=== PATIENT | male | born 1960 | race Caucasian/White ===

== ENCOUNTER 2022-11-10 14:46 | Outpatient (REF) | payer MEDICARE, SELFPAY ==
--- NOTE | ~2022-11-10 | US_ITS ---
EXAMINATION: NONINVASIVE ASSESSMENT OF THE ARTERIES OF BOTH LOWER EXTREMITIES WITH PVR EXAM AND BILATERAL LOWER EXTREMITY DUPLEX Iveth Ferreira MD CLINICAL INFORMATION: Peripheral vascular disease TECHNIQUE: Ankle pulse volume recordings, ankle pressure measurements and ankle brachial indices were obtained of the lower extremity arterial system bilaterally in addition to duplex Doppler techniques with wave form analysis and measurement of velocities in the common femoral, profunda femoral, superficial femoral, popliteal and tibial arteries. The study was performed only at rest. COMPARISON: None FINDINGS: a) AT REST: RIGHT LE. The right ankle-brachial index is: 1.01 * >0.97-1.25 = normal - no significant arterial disease * 0.75-0.96 = mild peripheral arterial disease * 0.5-0.74 = moderate peripheral arterial disease * <0.50 = severe peripheral arterial disease 2. Right ankle pressure: normal. 3. Right ankle PVR waveform: normal. 4. Right direct duplex Doppler findings: Common femoral artery: 107 cm/s, Multiphasic Profunda femoris artery: 104 cm/s, Multiphasic Superficial femoral artery (proximal): 135 cm/s, Multiphasic Superficial femoral artery (mid): 110 cm/s, Multiphasic Superficial femoral artery (distal): 69 cm/s, Multiphasic Proximal Popliteal artery: 82 cm/s, Multiphasic Mid posterior tibial artery: 98 cm/s, Multiphasic LEFT LE. The left ankle-brachial index is: 1.06 * >0.97-1.25 = normal - no significant arterial disease * 0.75-0.96 = mild peripheral arterial disease * 0.5-0.74 = moderate peripheral arterial disease * <0.50 = severe peripheral arterial disease 2. Left ankle pressure: normal. 3. Left ankle PVR waveform: normal. 4. Left direct duplex Doppler findings: Common femoral artery: 147 cm/s, Multiphasic Profunda femoris artery: 117 cm/s, Multiphasic Superficial femoral artery (proximal): 166 cm/s, Multiphasic Superficial femoral artery (mid): 122 cm/s, Multiphasic Superficial femoral artery (distal): 58 cm/s, Multiphasic Proximal Popliteal artery: 55 cm/s, Multiphasic Mid posterior tibial artery: 87 cm/s, Multiphasic US/US SOCORRO complete IMPRESSION: There is no evidence of any hemodynamically significant lower extremity arterial disease by pressure, waveform or duplex Doppler criteria at rest.
--- NOTE | ~2022-11-10 | US_ITS ---
EXAMINATION: NONINVASIVE ASSESSMENT OF THE ARTERIES OF BOTH LOWER EXTREMITIES WITH PVR EXAM AND BILATERAL LOWER EXTREMITY DUPLEX Iveth Ferreira MD CLINICAL INFORMATION: Peripheral vascular disease TECHNIQUE: Ankle pulse volume recordings, ankle pressure measurements and ankle brachial indices were obtained of the lower extremity arterial system bilaterally in addition to duplex Doppler techniques with wave form analysis and measurement of velocities in the common femoral, profunda femoral, superficial femoral, popliteal and tibial arteries. The study was performed only at rest. COMPARISON: None FINDINGS: a) AT REST: RIGHT LE. The right ankle-brachial index is: 1.01 * >0.97-1.25 = normal - no significant arterial disease * 0.75-0.96 = mild peripheral arterial disease * 0.5-0.74 = moderate peripheral arterial disease * <0.50 = severe peripheral arterial disease 2. Right ankle pressure: normal. 3. Right ankle PVR waveform: normal. 4. Right direct duplex Doppler findings: Common femoral artery: 107 cm/s, Multiphasic Profunda femoris artery: 104 cm/s, Multiphasic Superficial femoral artery (proximal): 135 cm/s, Multiphasic Superficial femoral artery (mid): 110 cm/s, Multiphasic Superficial femoral artery (distal): 69 cm/s, Multiphasic Proximal Popliteal artery: 82 cm/s, Multiphasic Mid posterior tibial artery: 98 cm/s, Multiphasic LEFT LE. The left ankle-brachial index is: 1.06 * >0.97-1.25 = normal - no significant arterial disease * 0.75-0.96 = mild peripheral arterial disease * 0.5-0.74 = moderate peripheral arterial disease * <0.50 = severe peripheral arterial disease 2. Left ankle pressure: normal. 3. Left ankle PVR waveform: normal. 4. Left direct duplex Doppler findings: Common femoral artery: 147 cm/s, Multiphasic Profunda femoris artery: 117 cm/s, Multiphasic Superficial femoral artery (proximal): 166 cm/s, Multiphasic Superficial femoral artery (mid): 122 cm/s, Multiphasic Superficial femoral artery (distal): 58 cm/s, Multiphasic Proximal Popliteal artery: 55 cm/s, Multiphasic Mid posterior tibial artery: 87 cm/s, Multiphasic US/US arterial duplex LE BI IMPRESSION: There is no evidence of any hemodynamically significant lower extremity arterial disease by pressure, waveform or duplex Doppler criteria at rest.
== END 2022-11-10 14:47 | disposition home or self-care (01) ==
LOC: HO.US 14:46
PROVIDERS: PCP Family Medicine; Visit Provider Family Medicine
DX: I73.9 Peripheral vascular disease, unspecified (principal)
CPT/HCPCS: 93923; 93925

== ENCOUNTER 2022-11-24 08:31 | Outpatient (REF) | payer MEDICARE, SELFPAY ==
--- NOTE | ~2022-11-24 | US_ITS ---
EXAMINATION: US RETROPERITONEAL LIMITED (RENAL ONLY) CLINICAL INFORMATION: Hypertension. COMPARISON: None available. TECHNIQUE: Doppler, color and grayscale evaluation of the kidneys and renal arteries including waveform spectral analysis of the renal arteries FINDINGS: RIGHT KIDNEY: 9.6 x 5.9 x 5.2 cm (SAG x AP x TRV). The kidney is normal in size, contour, and echogenicity. Renal cortical thickness is normal. No calculi or focal parenchymal lesions. No hydronephrosis. LEFT KIDNEY: 10.6 x 4.7 x 5 cm (SAG x AP x TRV). The kidney is normal in size, contour, and echogenicity. Renal cortical thickness is normal. No calculi or focal parenchymal lesions. No hydronephrosis. Right renal artery peak systolic velocity measures 61 cm/s. Mid aortic peak systolic velocity is 61 cm/s. There is aneurysm and graft in the distal abdominal aorta. Dedicated aortic ultrasound not performed. The right renal artery is patent. Right renal artery peak systolic velocities measure 34, 51 and 47 cm/s proximally, in the midportion and distally right renal artery peak systolic velocity is 0.8 cm/s. Resistive indices of the segmental renal arteries in the right kidney are normal measuring 0.6, 0.7. The left renal artery is patent. There is increased peak systolic velocity and spectral broadening of the left proximal renal artery measuring 245 cm/s. Peak systolic velocities in the left mid and distal renal arteries are normal measuring 141 and 35 cm/s. Left renal artery to aorta ratio is elevated measuring 4 suggestive of greater than 60% left renal artery stenosis. Resistive indices of the segmental renal arteries in the left kidney are normal measuring 0.6-0.7. The left renal vein is patent. US/US renal doppler IMPRESSION: Increased peak systolic velocity in the left proximal renal artery, spectral broadening and increased left renal artery to aorta ratio suggestive of greater than 60% left renal artery stenosis. No evidence of right renal artery stenosis.
== END 2022-11-24 08:32 | disposition home or self-care (01) ==
LOC: HO.US 08:31
PROVIDERS: PCP Family Medicine; Visit Provider Internal Medicine Nephrology
DX: I10 Essential (primary) hypertension (principal); N17.9 Acute kidney failure, unspecified
CPT/HCPCS: 76775; 93975

== ENCOUNTER 2023-04-15 08:45 | Outpatient (REF) | payer MEDICARE, SELFPAY ==
[2023-04-15 14:41] LABS: Anion Gap 16 (12-20); Blood Urea Nitrogen 15 mg/dL (9-16); Calcium 9.7 mg/dL (8.4-10.2); Carbon Dioxide 28 mmol/L (22-29); Chloride 101 mmol/L (96-108); Estimated Glomerular Filt Rate > 60; Glucose Random 120 mg/dL (60-115); Magnesium 2.3 mg/dL (1.6-2.6); Potassium 3.6 mmol/L (3.3-5.1); Sodium 141 mmol/L (135-145)
== END 2023-04-15 08:46 | disposition home or self-care (01) ==
LOC: HO.CHCLDS 08:45
PROVIDERS: Visit Provider Family Medicine
DX: I10 Essential (primary) hypertension (principal)
CPT/HCPCS: 36415; 80048; 83735

== ENCOUNTER 2024-01-18 11:31 | Outpatient (REF) | payer MEDICARE, SELFPAY ==
[2024-01-18 14:28] LABS: MANUAL DIFF FLAG NO
[2024-01-18 14:38] LABS: Basophils Absolute Auto 0.1 X10*3/uL (0.0-0.2); Basophils Percent Auto 0.6 % (0-2); Eosinophils Absolute Auto 0.3 X10*3/uL (0.0-0.4); Eosinophils Percent Auto 3.1 % (0-4); Hematocrit 42.3 % (42.0-52.0); Hemoglobin 14.6 g/dl (14.0-18.0); Imm Gran Abs Auto 0.04 X10*3/uL (0.00-0.03); Imm Gran Pct Auto 0.4 % (0.0-0.4); Lymphocytes Absolute Auto 2.2 X10*3/uL (1.2-4.9); Lymphocytes Percent Auto 21.8 % (20-40); Mean Corpuscular HGB Conc 34.5 g/dl (31.0-36.0); Mean Corpuscular Hemoglobin 32.1 pg (27.0-33.0); Mean Platelet Volume 9.3 fL (9.4-12.4); Monocytes Absolute Auto 0.8 X10*3/uL (0.1-1.2); Monocytes Percent Auto 8.2 % (2-11); Neutrophils Absolute Auto 6.6 x10*3/uL (2.0-8.3); Neutrophils Percent Auto 65.9 % (45-73); Platelet Count 268 X10*3/uL (160-400); Red Blood Count 4.55 X10*6/uL (4.60-5.80); Red Cell Distribution Width 14.6 % (11.0-16.0)
[2024-01-18 15:09] LABS: Alanine Aminotransferase 15 U/L (0-40); Albumin Level 4.5 g/dL (3.5-5.0); Alkaline Phosphatase 80 U/L (39-117); Anion Gap 14 (12-20); Aspartate Amino Transferase 19 U/L (5-37); Bilirubin Total 0.4 mg/dL (0.0-1.0); Blood Urea Nitrogen 11 mg/dL (9-16); Carbon Dioxide 27 mmol/L (22-29); Chloride 105 mmol/L (96-108); Cholesterol 173 mg/dL (<200); Estimated Glomerular Filt Rate 54; Glucose Random 96 mg/dL (60-115); HDL Cholesterol 44 mg/dL (>40); LDL Cholesterol Calculated 88 mg/dL (<100); Potassium 4.7 mmol/L (3.3-5.1); Sodium 141 mmol/L (135-145); Total Protein 7.6 g/dL (6.5-8.0); Triglycerides 207 mg/dL (<150)
[2024-01-18 15:14] LABS: TSH reflex Free T4 1.26 uIU/mL (0.32-4.0)
== END 2024-01-18 11:32 | disposition home or self-care (01) ==
LOC: HO.CHCLDS 11:31
PROVIDERS: Referring Provider Internal Medicine Nephrology; Visit Provider Family Medicine
DX: I10 Essential (primary) hypertension (principal)
CPT/HCPCS: 36415; 80053; 80061; 84443; 85025

== ENCOUNTER 2024-07-21 09:43 | Outpatient (REF) | payer MEDICARE, SELFPAY ==
[2024-07-21 14:44] LABS: Anion Gap 12 (12-20); Blood Urea Nitrogen 17 mg/dL (9-16); Calcium 9.6 mg/dL (8.4-10.2); Carbon Dioxide 27 mmol/L (22-29); Chloride 107 mmol/L (96-108); Estimated Glomerular Filt Rate 53; Glucose Random 98 mg/dL (60-115); Potassium 4.3 mmol/L (3.3-5.1); Sodium 142 mmol/L (135-145)
== END 2024-07-21 09:44 | disposition home or self-care (01) ==
LOC: HO.CHCLDS 09:43
PROVIDERS: PCP Family Medicine; Referring Provider Internal Medicine Nephrology; Visit Provider Internal Medicine Nephrology
DX: N18.31 Chronic kidney disease, stage 3a (principal); I12.9 Hypertensive chronic kidney disease with stage 1 through stage 4 chronic kidney disease, or unspecified chronic kidney disease
CPT/HCPCS: 36415; 80048

== ENCOUNTER 2025-03-16 10:31 | Outpatient (REF) | payer MEDICARE, SELFPAY ==
--- OUTSIDE RECORDS SUMMARY | 2025-03-15 16:00 | XMS_ITS | Encounter Summary ---
Author Organization [employer] Address [address] [place] [address] Care Team Providers Care Blister Packaging Machine Operator Name Role Phone Hanh Vidal MD Primary Care Provider [phone] Reason for Referral * Consultation (Routine) - Pending Review Specialty Diagnoses / Procedures Referred By Lexy t Referred To Contact Audiology Diagnoses Hard of hearing Hanh Vidal MD [address] [place] [address] Phone: tel: fax: Referral ID Status Reason Start Date Expiration Date Visits Requested Visits Authorized [id number] Pending Review Specialty Services Required 5 03/15/2026 1 1 * Consultation (Routine) - Pending Review Specialty Diagnoses / Procedures Referred By Lexy vieira Referred To Contact Gastroenterology Diagnoses Colon cancer screening Hanh Vidal MD [address] [place] [id number] Phone: tel: fax: Referral ID Status Reason Start Date Expiration Date Visits Requested Visits Authorized [id number] Pending Review Specialty Services Required 5 03/15/2026 1 1 * Imaging (Routine) - Pending Review Specialty Diagnoses / Procedures Referred By Lexy t Referred To Contact Cardiology Diagnoses Aneurysm of ascending aorta without rupture (CMS/HCC) Procedures Transthoracic echo (TTE) complete Hanh Vidal MD [address] [place] [id number] Phone: tel: fax: [address] Phone: tel: fax: Referral ID Status Reason Start Date Expiration Date Visits Requested Visits Authorized [id number] Pending Review Perform Procedure 03/15/2026 1 1 * Imaging (Routine) - Pending Review Specialty Diagnoses / Procedures Referred By Contjoseluis t Referred To Contact Radiology Diagnoses Infrarenal abdominal aortic aneurysm (AAA) without rupture (CMS/HCC) Procedures CT Abdomen Pelvis w/ and w/o Contrast Hanh Vidal MD [address] [place] [address] Phone: tel: fax: [address] Phone: tel: fax: Referral ID Status Reason Start Date Expiration Date V isits Requested Visits Authorized [id number] Pending Review 03/15/2025 03/15/2026 1 1 Reason for Visit * Reason Comments Follow-up Encounter Details Date Type Department Care Team (Late st Contact Info) Description 03/15/2025 4:00 PM EST Office Visit [facility] [address] [place] [address] Hanh Vidal MD [address] [place] [address] Infrarenal abdominal aortic aneurysm (AAA) without rupture (CMS/HCC) (Primary Dx); Resistant hypertension; Aneurysm of ascending aorta without rupture (CMS/HCC); Gout, unspecified cause, unspecified chronicity, unspecified site; Encounter for immunization; Encounter for vaccination; Colon cancer screening; Hard of hearing; Prostate cancer screening Social History Tobacco Use Types Packs/Day Years Used Date Smoking Tobacco: Every Day Cigarettes Passive Smoke Exposure: Never Smokeless Tobacco: Never Alcohol Use Standard Drinks/Week Comments Never 0 (1 standard drink = 0.6 oz pur e alcohol) Depression Answer Date Recorded Patient Health Questionnaire-9 Score 7 03/16/2025 Patient Health Questionnaire-9 Score 7 03/16/2025 Last PHQ-9: Questionnaire Data Not on file 1 05/16/2024 Housing Stability Answer Date Recorded What is your housing situation today? I have celi sanders 02/10/[address] you li ve. Do you have problems with any of the following? None of the above 02/10/2024 Food Insecurity Answer Date Recorded Within the past 12 months, y ou worried that your food would run out before you got money to buy more: Never True 02/10/2024 Within the past 12 months,th e food you bought just didn't last and you didn't have enough money to get more: Never True 01/2024 Transportation Answer Date Recorded In the past 12 months, has l ack of transportation kept you from medical appts, meetings, work or from getting things needed for daily living? No 02/10/2024 Utilities Answer Date Recorded In the past 12 months, has t he electric, gas, oil or water company threatened to shut off services in your home? No 02/10/2024 Depression Answer Date Recorded Patient Health Questionnaire-2 Score 0 03/16/2025 Internet Access Answer Date Recorded Internet Access Q1 Yes 02/10/2024 Internet Access Q2 Not on file 02/10/2024 Sex and Gender Information Value Date Recorded Sex Assigned at Male 03/03/2022 10:39 AM EDT Legal Sex Male 10:39 AM EDT Gender Identity Male 03/03/2022 10:39 AM EDT Sexual Orientation Straight 03/03/2022 10 :39 AM EDT documented as of this encounter Last Filed Vital Signs Vital Sign Reading Time Taken Comments Blood Pressure 146/78 03/15/2025 3:51 PM EST Pulse 82 03/15/2025 3:51 PM EST Temperature 37.1 C (98.8 F) 03/15/2025 3:51 PM EST Respiratory Rate 20 03/15/2025 3:51 PM EST Oxygen Saturation 98% 03/15/2025 3:51 PM EST Inhaled Oxygen Concentration - - Weight 103 kg (227 lb 6.4 oz) 03/15/2025 3:51 PM EST Height 174 cm (5' 8.5 ) 03/15/2025 3:51 PM EST Body Mass Index 34.07 03/15/2025 3:51 PM EST documented in this encounter Functional Status * Over the past 2 weeks, how often have you been bothered by any of the following problems? Question Answer Date of Assessment Author Patient Health Questionnaire-2 Score 0 03/04 8:34 AM EST Lion Rod MA * Little interest or pleasure in doing things Answer Date of Assessment Author Not at all 03/16/2025 8:34 AM Lion Botello [place] * Feeling down, depressed, or hopeless Answer Date of Assessment Author Not at all 03/16/2025 8:34 AM Lion Botello MA * Trouble falling or staying asleep, or sleeping too much Answer Date of Assessment Author Nearly every day 03/16/2025 8:34 AM Lion Botello MA * Feeling tired or having little energy Answer Date of Assessment Author More than half the days 03/16/2025 8:34 AM EST Lion Topete MA * Poor appetite or overeating Answer Date of Assessment Author More than half the days 03/16/2025 8:34 AM Lion Thacker MA * Feeling bad about yourself - or that you are a failure or have let yourself or your family down Answer Date of Assessment Author Not at all 03/16/2025 8:34 AM Lion Botello MA * Trouble concentrating on things, such as reading the newspaper or watching television Answer Date of Assessment Author Not at all 03/16/2025 8:34 AM Lion Botello MA * Moving or speaking so slowly that other people could have noticed? Or the opposite - being so fidgety or restless that you have been moving around a lot more than usual. Answer Date of Assessment Author Not at all 03/16/2025 8:34 AM Lion Botello MA * Thoughts that you would be better off or hurting yourself in some way Answer Date of Assessment Author Not at all 03/16/2025 8:34 AM Lion Botello MA * Patient Health Questionnaire-9 Score Answer Date of Assessment Author 7 03/16/2025 8:34 AM Lion Botello MA * How difficult have these problems made it for you to do your work, take care of things at home, or get along with other people? Answer Date of Assessment Author Not difficult at all 03/16/2025 8:34 AM Lion Fatima MA documented as of this encounter Plan of Treatment Upcoming Encounters Date Type Department Care Team (Late st Contact Info) Description 04/04/2025 11:30 AM EST Telemedicine [facility] [address] [place] [address] Joanne Hernandez, PharmD [address] [place] [address] Scheduled Orders Name Type Priority Associated Diagnoses Orde r Schedule CT Abdomen Pelvis w/ and w/o Contrast Imaging Routine Infrarenal abdominal aortic aneurysm (AAA) without rupture (CMS/HCC) Expected: 03/15/2025, Expires: 03/15/2026 Transthoracic echo (TTE) complete Echocardiography Routine Aneurysm of ascending aorta without rupture (CMS/HCC) Expected: 03/15/2025 (Approximate), Expires: 03/15/2027 Uric acid Lab Routine Gout, unspecified cause, unspecified chronicity, unspecified site Expected: 03/15/2025 (Approximate), Expires: 03/15/2026 Comprehensive Metabolic Panel Lab Routine Resistant hypertension Expected: 03/15/2025 (Approximate), Expires: 03/15/2026 CBC auto differential Lab Routine Resistant hypertension Expected: 03/15/2025 (Approximate), Expires: 03/15/2026 Lipid Panel, Standard Lab Routine Resistant hypertension Expected: 03/15/2025 (Approximate), Expires: 03/15/2026 TSH W/Reflex to FT4 Lab Routine Resistant hypertension Expected: 03/15/2025 (Approximate), Expires: 03/15/2026 PSA, Total With Reflex to PSA, Free Lab Routine Prostate cancer screening Expected: 03/15/2025 (Approximate), Expires: 03/15/2026 Scheduled Referrals Name Type Priority Associated Diagnoses Order Schedule Referral to Gastroenterology Outpatient Referral Routine Colon cancer screening Expected: 03/15/2025 (Approximate), Expires: 03/15/2026 Referral to Audiology Outpatient Referral Routine Hard of hearing Expected: 03/15/2025 (Approximate), Expires: 03/15/2026 documented as of this encounter Visit Diagnoses Diagnosis Infrarenal abdominal aortic aneurysm (AAA) without rupture (CMS/HCC)- Primary Resistant hypertension Aneurysm of ascending aorta without rupture (CMS/HCC) Gout, unspecified cause, unspecified chronicity, unspecified site Encounter for immunization Encounter for vaccination Colon cancer screening Special screening for malignant neoplasms, colon Hard of hearing Unspecified hearing loss Prostate cancer screening Special screening for malignant neoplasm of prostate documented in this encounter Additional Health Concerns Assessment Noted Time PHQ-9 Depression Total Score: 7 03/16/20 25 8:34 AM EST documented as of this encounter Care Teams Blister Packaging Machine Operator Relationship Specialty Start Date End Date Hanh Vidal MD [address] [place] [address] PCP - General Family Medicine 05/15/21 Mxaimo Cullen [employer] Commander 10/28/22 Yair Lackye Manual Writer 01/30/23 documented as of this encounter
--- OUTSIDE RECORDS SUMMARY | 2025-03-16 12:53 | XMS_ITS | Encounter Summary ---
Author Organization [employer] Address [address] [place] [address] [address] [place] [address] Care Team Providers Care Lipcoat Sprayer Name Role Phone Hanh Vidal MD Primary Care Provider Reason for Visit * Reason Comments Med Refill Encounter Details Date Type Department Care Team ([facility] st Contact Info) Description 07/30/2022 Refill [facility] [address] [place], [place] [id number] Hanh Vidal MD [address] [place] [address] Social History Tobacco Use Types Packs/Day Years Used Date Smoking Tobacco: Never Passive Smoke Exposure: Never Smokeless Tobacco: Never Alcohol Use Standard Drinks/Week Comments Never 0 (1 standard drink = 0.6 oz pur e alcohol) Depression Answer Date Recorded Patient Health Questionnaire-9 Score 2 07/25/2022 Depression Answer Date Recorded Patient Health Questionnaire-2 Score 1 07/25/2022 Sex and Gender Information Value Date Recorded Sex Assigned at Male 03/03/2022 10:39 AM EDT Legal Sex Male 10:39 AM EDT Gender Identity Male 03/03/2022 10:39 AM EDT Sexual Orientation Straight 03/03/2022 10 :39 AM EDT COVID-19 Exposure Response Date Recorded In the last 10 days, have yo u been in contact with someone who was confirmed or suspected to have Coronavirus/COVID-19? No / Unsure 08/01/2022 10:14 AM EDT documented as of this encounter Miscellaneous Notes * Telephone Encounter - Hanh Vidal MD - 07/31/2022 4:34 PM EDT Recommended hold given CARMEN * Telephone Encounter - Joyce Matta RN - 07/30/2022 11:31 AM EDT Incoming TC from pt. RN informed pt of Dr. Vidal message stating: Please inform of improvement of his kidney function but not back to baseline, continue holding BRET-I and diuretic. He should be on hydralazine and labetalol. Please assess what his BP is, he alreadyhas a referral to nephrology in the works. Pt agrees to above and will await nephrology appt. Pt to hold meds that Dr. Vidal suggested. Pt informed if BP is high to call [facility] with reading. Pt agrees to POC and will f/u PRN. documented in this encounter Plan of Treatment Upcoming Encounters Date Type Department Care Team (Late st Contact Info) Description 04/04/2025 11:30 AM EST Telemedicine [facility] MED [facility] PED[facility] [address] [place] [address] Joanne Hernandez, PharmD [address] [place] [address] documented as of this encounter Visit Diagnoses Not on filedocumented in this encounter Additional Health Concerns Assessment Noted Time PHQ-9 Depression Total Score: 2 07/26/19 23 3:20 PM EDT documented as of this encounter Care Teams Lipcoat Sprayer Relationship Specialty Start Date End Date Hanh Vidal MD [address] [place] [address] PCP - General Family Medicine 05/15/21 Maximo Cullen Clinical Research Physician 10/28/22 Yair Lackey Press Cleaner 01/30/23 documented as of this encounter
--- OUTSIDE RECORDS SUMMARY | 2025-03-16 12:53 | XMS_ITS | Data Portability ---
Author Organization [facility], Main Office Address [address] [facility] [address] [place] [id number] Care Team Providers Care Teaching Aide Name Role Phone [facility] OTHER MIN HARRINGTNO Primary Care Provider MIGUEL BURKETT Petroleum Plant Operator NALLELY RODRIGUES Orthopedic Surgeon [phone] STEPHANIE BHATT Android Ui Developer Assessment No assessment recorded. Plan of Treatment Reminders Order Date Submit Date Provider Last Modified By Organization Details Last Modified Time Details Appointments None recorded. Lab CBC w/ auto diff 2018 019 [facility], [address], [facility], [place], [address], 9 14:20:44 ESR (erythrocy te sedimentat ion rate), blood 2018 019 [facility], [address], [place] , [place], [address], 9 14:40:47 CBC w/ auto diff 2018 019 [facility], [address], [place] , [place], [address], 9 14:04:46 Referral None recorded. Procedures None recorded. Surgeries None recorded. Imaging XR, toe(s), 2 or more view - ? foreign body in the R. big toe. 2018 019 WILDA [facility], [address], [place], [address], 9 10:50:28 Medication Orders cephalexin 500 mg tablet 2018 019 INTERFACE [id number], [address] [place], [address], 9 10:46:15 doxycyclin e hyclate 100 mg tablet 2018 019 rkanu [id number], [address] [facility] [place], [address], 9 10:07:05 Patient TargetsNo targets recorded. Patient Instructions Encounter Date Encounter Id Patient Instructions Last Modified By Organization Details Last Modified Time 11/03/2018 [id number] cellulitis: care instructions [email or web address] Not available 11/03/2018 09:20:30 Reason for Referral None Reported. Results Created Date Observation Date Name Description Value Unit Range Abnormal Flag Note LastModifiedBy Organization Detail LastModifiedTime 11/04/1911/03/2018 CBC w/ auto diff WBC 12.4 K/mm3 (4.0-1 1.0) high Not Available [facility] (Centralized Electronic Ordering - All Locations) Patient Can Go To The Location Of Their Choice, [id number] 11/03/2018 14:04:45 11/04/1911/03/2018 CBC w/ auto diff RBC 3.96 M/mm3 (4.70- 6.10) low Not Available [facility] (Centralized Electronic Ordering - All Locations) Patient Can Go To The Location Of Their Choice, [id number] 11/03/2018 14:04:45 11/04/1911/03/2018 CBC w/ auto diff HGB 12.5 gm/dL (13.7- 17.1) low Not Available [facility] (Centralized Electronic Ordering - All Locations) Patient Can Go To The Location Of Their Choice, [id number] 11/03/2018 14:04:45 11/04/19 19 11/03/2018 CBC w/ auto diff HCT 38.0 % (40.5- 50.0) low Not Available [facility] (Centralized Electronic Ordering - All Locations) Patient Can Go To The Location Of Their Choice, 11/03/2018 14:04:45 11/04/1911/03/2018 CBC w/ auto diff MCV 96.0 fL (80.0- 94.0) high Not Available [facility] (Centralized Electronic Ordering - All Locations) Patient Can Go To The Location Of Their Choice, 11/03/2018 14:04:45 11/04/1911/03/2018 CBC w/ auto diff MCH 31.6 pg (27.0- 34.0) Not Available [facility] (Centralized Electronic Ordering - All Locations) Patient Can Go To The Location Of Their Choice, 11/03/2018 14:04:45 11/04/1911/03/2018 CBC w/ auto diff MCHC 32.9 g/dL (33.0- 37.0) low Not Available [facility] (Centralized Electronic Ordering - All Locations) Patient Can Go To The Location Of Their Choice, 11/03/2018 14:04:45 11/04/1911/03/2018 CBC w/ auto diff plt 272 K/mm3 (150-4 60) Not Available [facility] (Centralized Electronic Ordering - All Locations) Patient Can Go To The Location Of Their Choice, 11/03/2018 14:04:45 11/04/1911/03/2018 CBC w/ auto diff RDW-SD 49.0 fL (<47.0 ) high Not Available [facility] (Centralized Electronic Ordering - All Locations) Patient Can Go To The Location Of Their Choice, 11/03/2018 14:04:45 11/04/1911/03/2018 CBC w/ auto diff MPV 9.1 fL (9.4-1 2.4) low Not Available [facility] (Centralized Electronic Ordering - All Locations) Patient Can Go To The Location Of Their Choice, 11/03/2018 14:04:45 11/04/1911/03/2018 CBC w/ auto diff automated NRBC 0.0 #/100 _WBC' s Not Available [facility] (Centralized Electronic Ordering - All Locations) Patient Can Go To The Location Of Their Choice, 11/03/2018 14:04:45 11/04/1911/03/2018 CBC w/ auto diff abs. NRBC 0.0 K/mm3 Not Available [facility] (Centralized Electronic Ordering - All Locations) Patient Can Go To The Location Of Their Choice, 11/03/2018 14:04:45 11/04/1911/03/2018 CBC w/ auto diff neut # 9.1 K/mm3 (1.3-7 .0) high Not Available [facility] (Centralized Electronic Ordering - All Locations) Patient Can Go To The Location Of Their Choice, 11/03/2018 14:04:45 11/04/1911/03/2018 CBC w/ auto diff lymph # 1.8 K/mm3 (0.8-3 .1) Not Available [facility] (Centralized Electronic Ordering - All Locations) Patient Can Go To The Location Of Their Choice, 11/03/2018 14:04:45 11/04/1911/03/2018 CBC w/ auto diff mono# 1.1 K/mm3 (0.4-1 .3) Not Available [facility] (Centralized Electronic Ordering - All Locations) Patient Can Go To The Location Of Their Choice, 11/03/2018 14:04:45 11/04/1911/03/2018 CBC w/ auto diff eo # 0.4 K/mm3 (0.0-0 .4) Not Available [facility] (Centralized Electronic Ordering - All Locations) Patient Can Go To The Location Of Their Choice, 11/03/2018 14:04:45 11/04/1911/03/2018 CBC w/ auto diff baso # 0.1 K/mm3 (0.0-0 .1) Not Available [facility] (Centralized Electronic Ordering - All Locations) Patient Can Go To The Location Of Their Choice, 11/03/2018 14:04:45 11/04/1911/03/2018 CBC w/ auto diff abs. imm gran 0.1 K/mm3 Not Available [facility] (Centralized [facility] Ordering - All Locations) Patient Can Go To The Location Of Their Choice, 11/03/2018 14:04:45 11/04/1911/03/2018 CBC w/ auto diff neut 73.2 % (44-76 ) Not Available [facility] (Centralized Electronic Ordering - All Locations) Patient Can Go To The Location Of Their Choice, 11/03/2018 14:04:45 11/04/1911/03/2018 CBC w/ auto diff lymph 14.5 % (15-43 ) low Not Available [facility] (Centralized Electronic Ordering - All Locations) Patient Can Go To The Location Of Their Choice, 11/03/2018 14:04:45 11/04/1911/03/2018 CBC w/ auto diff monocyte 8.5 % (4.5-1 0.5) Not Available [facility] (Centralized Electronic Ordering - All Locations) Patient Can Go To The Location Of Their Choice, 11/03/2018 14:04:45 11/04/1911/03/2018 CBC w/ auto diff eo 2.9 % (0-6) Not Available [facility] (Centralized Electronic Ordering - All Locations) Patient Can Go To The Location Of Their Choice, 11/03/2018 14:04:45 11/04/1911/03/2018 CBC w/ auto diff baso 0.4 % (0-2) Not Available [facility] (Centralized Electronic Ordering - All Locations) Patient Can Go To The Location Of Their Choice, 11/03/2018 14:04:45 11/04/1911/03/2018 CBC w/ auto diff imm gran 0.5 % Not Available [facility] (Centralized Electronic Ordering - All Locations) Patient Can Go To The Location Of Their Choice, 11/03/2018 14:04:45 03/02/2003/02/2019 CBC w/ auto diff WBC 8.5 K/mm3 (4.0-1 1.0) Not Available [facility] (Centralized Electronic Ordering - All Locations) Patient Can Go To The Location Of Their Choice, 03/02/2019 14:20:44 03/02/2003/02/2019 CBC w/ auto diff RBC 4.28 M/mm3 (4.70- 6.10) low Not Available [facility] (Centralized Electronic Ordering - All Locations) Patient Can Go To The Location Of Their Choice, 03/02/2019 14:20:44 03/02/2003/02/2019 CBC w/ auto diff HGB 13.2 gm/dL (13.7- 17.1) low Not Available [facility] (Centralized Electronic Ordering - All Locations) Patient Can Go To The Location Of Their Choice, 03/02/2019 14:20:44 03/02/2003/02/2019 CBC w/ auto diff HCT 40.7 % (40.5- 50.0) Not Available [facility] (Centralized Electronic Ordering - All Locations) Patient Can Go To The Location Of Their Choice, 03/02/2019 14:20:44 03/02/2003/02/2019 CBC w/ auto diff MCV 95.1 fL (80.0- 94.0) high Not Available [facility] (Centralized Electronic Ordering - All Locations) Patient Can Go To The Location Of Their Choice, 03/02/2019 14:20:44 03/02/2003/02/2019 CBC w/ auto diff MCH 30.8 pg (27.0- 34.0) Not Available [facility] (Centralized Electronic Ordering - All Locations) Patient Can Go To The Location Of Their Choice, 03/02/2019 14:20:44 03/02/2003/02/2019 CBC w/ auto diff MCHC 32.4 g/dL (33.0- 37.0) low Not Available [facility] (Centralized Electronic Ordering - All Locations) Patient Can Go To The Location Of Their Choice, 03/02/2019 14:20:44 03/02/2003/02/2019 CBC w/ auto diff plt 270 K/mm3 (150-4 60) Not Available [facility] (Centralized Electronic Ordering - All Locations) Patient Can Go To The Location Of Their Choice, 03/02/2019 14:20:44 03/02/2003/02/2019 CBC w/ auto diff RDW-SD 47.4 fL (<47.0 ) high Not Available [facility] (Centralized Electronic Ordering - All Locations) Patient Can Go To The Location Of Their Choice, 03/02/2019 14:20:44 03/02/2003/02/2019 CBC w/ auto diff MPV 8.7 fL (9.4-1 2.4) low Not Available [facility] (Centralized Electronic Ordering - All Locations) Patient Can Go To The Location Of Their Choice, 03/02/2019 14:20:44 03/02/2003/02/2019 CBC w/ auto diff automated NRBC 0.0 #/100 _WBC' s Not Available [facility] (Centralized Electronic Ordering - All Locations) Patient Can Go To The Location Of Their Choice, 03/02/2019 14:20:44 03/02/2003/02/2019 CBC w/ auto diff abs. NRBC 0.0 K/mm3 Not Available [facility] (Centralized Electronic Ordering - All Locations) Patient Can Go To The Location Of Their Choice, 03/02/2019 14:20:44 03/02/2003/02/2019 CBC w/ auto diff neut # 5.0 K/mm3 (1.3-7 .0) Not Available [facility] (Centralized Electronic Ordering - All Locations) Patient Can Go To The Location Of Their Choice, 03/02/2019 14:20:44 03/02/2003/02/2019 CBC w/ auto diff lymph # 2.1 K/mm3 (0.8-3 .1) Not Available [facility] (Centralized Electronic Ordering - All Locations) Patient Can Go To The Location Of Their Choice, 03/02/2019 14:20:44 03/02/2003/02/2019 CBC w/ auto diff mono# 0.8 K/mm3 (0.4-1 .3) Not Available [facility] (Centralized Electronic Ordering - All Locations) Patient Can Go To The Location Of Their Choice, 03/02/2019 14:20:44 03/02/2003/02/2019 CBC w/ auto diff eo # 0.5 K/mm3 (0.0-0 .4) high Not Available [facility] (Centralized Electronic Ordering - All Locations) Patient Can Go To The Location Of Their Choice, 03/02/2019 14:20:44 03/02/2003/02/2019 CBC w/ auto diff baso # 0.1 K/mm3 (0.0-0 .1) Not Available [facility] (Centralized Electronic Ordering - All Locations) Patient Can Go To The Location Of Their Choice, 03/02/2019 14:20:44 03/02/20 19 03/02/2019 CBC w/ auto diff abs. imm gran 0.0 K/mm3 Not Available [facility] (Centralized [facility] Ordering - All Locations) Patient Can Go To The Location Of Their Choice, 03/02/2019 14:20:44 03/02/2003/02/2019 CBC w/ auto diff neut 59.1 % (44-76 ) Not Available [facility] (Centralized Electronic Ordering - All Locations) Patient Can Go To The Location Of Their Choice, 03/02/2019 14:20:44 03/02/20 19 03/02/2019 CBC w/ auto diff lymph 24.8 % (15-43 ) Not Available [facility] (Centralized Electronic Ordering - All Locations) Patient Can Go To The Location Of Their Choice, 03/02/2019 14:20:44 03/02/2003/02/2019 CBC w/ auto diff monocyte 9.2 % (4.5-1 0.5) Not Available [facility] (Centralized Electronic Ordering - All Locations) Patient Can Go To The Location Of Their Choice, 03/02/2019 14:20:44 03/02/2003/02/2019 CBC w/ auto diff eo 5.7 % (0-6) Not Available [facility] (Centralized Electronic Ordering - All Locations) Patient Can Go To The Location Of Their Choice, 03/02/2019 14:20:44 03/02/2003/02/2019 CBC w/ auto diff baso 0.8 % (0-2) Not Available [facility] (Centralized Electronic Ordering - All Locations) Patient Can Go To The Location Of Their Choice, 03/02/2019 14:20:44 03/02/2003/02/2019 CBC w/ auto diff imm gran 0.4 % Not Available [facility] (Centralized Electronic Ordering - All Locations) Patient Can Go To The Location Of Their Choice, 03/02/2019 14:20:44 03/02/2003/02/2019 ESR (eryt hrocy te sedim entat ion rate) , blood sedimentatio n rate,automat ed 29 mm/HR (0-15) high In rare patie nts with multi ple myelo ma and other cance rs,Er ythro cyte Sedim entat ion Rate( ESR) by our curre nt metho d(iSE D)can be arik l. If clini art relev ant,p lease use C-killian ctive prote in as an equiv alent measu re of acute phase react ion in these patie nts. Not Available [facility] (Centralized Electronic Ordering - All Locations) Patient Can Go To The Location Of Their Choice, [id number] 03/02/2019 14:40:47 11/04/19 19 11/03/2018 XR, toe(s ), 2 or more view No observ ation record ed. [email or web address] [facility] [address], [place], [address], 11/18/2018 14:39:53 02/10/20 21 02/09/2021 XR, chest , 2 view No observ ation record ed. [facility] [address] [facility], [place], [address], 02/09/2021 13:12:03 Result Notes None recorded. Problems Name Problem SNOMED Code Status Onset Date Resolution Date Notes Provider Name and Address Organization Details Recorded Time Body mass index 25-29 - overweig ht 216435160 Active Not Available [facility] 0 02:10:04 Tobacco dependen ce syndrome 41711543 Active Not Available [facility] 0 02:10:04 Impetigo 45875752 Completed 12/10/2016 Min Harrington MD [address] [facility] [address], [place], [address] , [facility] 7 15:20:33 Divertic ular disease 230687448 Active Not Available [facility] 0 02:10:04 Disorder of cervical spine 645352967 Active Not Available [facility] 0 02:10:04 Allergic rhinitis 78553394 Active Not Available [facility] 0 02:10:04 Hypercho lesterol emia 81723980 Active Not Available [facility] 0 02:10:04 Cervical radiculo randa 34843834 Active 2015 multilev el degenrat ashlie changes, with severe left neurofor aminal narrowin g left C6/C7 Not Available [facility] 0 02:10:04 Gastroes ophageal reflux disease 921514357 Active 2015 Not Available [facility] 0 02:10:04 Major depressi ve disorder 424960557 Active 2017 Not Available [facility] 0 02:10:04 Elevated blood-pr essure reading without diagnosi s of hyperten merry 842227086 Completed 201807/13/2018 Deanna Monge PA-C [address] [facility], [place], [address] , [facility] 9 14:05:56 Elevated blood-pr essure reading without diagnosi s of hyperten merry 567437657 Active 2018 Not Available [facility] 0 02:10:04 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 Procedures Surgical History Date Name Laterality Status Provider Name and Address Organization Details Recorded Time 09/02/19 17 Chronic Pain Assessment completed Deepthi Reeder [place] [facility] 09/01/2016 11:02:30 06/06/19 17 Chronic Pain Assessment completed Josefa Becker [facility] 06/06/2016 10:00:39 02/28/20 16 Colonoscopy completed Tuyet Peñaloza [facility] 03/12/2016 14:58:37 06/12/19 16 Nerve surgery completed Min Harrington MD [address] [facility], [place], [address], [facility] 03/07/2016 12:27:46 05/08/19 15 Nerve surgery completed Min Harrington MD [address] [address], [place], [address], [facility] 03/07/2016 12:28:13 05/04/19 08 Back Surgery completed Min Harrington MD [address] [place], [address], [facility] 11/29/2015 14:01:51 05/04/18 90 Hernia Repair completed Min Harrington MD [address] [facility] [address], [place], [address], [facility] 12/10/2016 15:26:15 Imaging Results None recorded. Procedure Notes None recorded. Medical Equipment None Reported. Allergies No known drug allergies Medications Name Sig Start Date Stop Date Status Note LastModified by Organization Details LastModified Time atorvastati n 20 mg tablet Take 1 tablet every day by oral route as directed for 30 days. active Not Available Not Available No t Available cephalexin 250 mg capsule 03/02 completed Not Available Not Available Not Available acetaminoph en 300 mg-codeine 30 mg tablet active Not Available Not Available Not Available Tamiflu 75 mg capsule Take 1 capsule twice a day by oral route for 5 days. 05/06 completed Not Available Not Available Not Available doxycycline monohydrate 100 mg tablet Take 1 tablet twice a day by oral route for 7 days. 07/13 completed Not Available Not Available Not Available tramadol 50 mg tablet TAKE 1 TABLET BY MOUTH 3 TIMES A DAY NEEDED 04/01 completed Not Available Not Available Not Available triamcinolo ne acetonide 0.1 % topical cream APPLY A THIN LAYER TO THE AFFECTED AREA(S) BY TOPICAL ROUTE 2 TIMES PER DAY for 10-14 days 03/02 completed Not Available Not Available Not Available oxycodone-a cetaminophe n 5 mg-325 mg tablet active Not Available Not Available No t Available oxycodone-a cetaminophe n 10 mg-325 mg tablet active Not Available Not Available No t Available cephalexin 500 mg capsule Take 1 capsule every 6 hours by oral route for 7 days. 03/02 completed Not Available Not Available Not Available ranitidine 150 mg tablet Take 1 tablet twice a day by oral route as needed. 09/01 completed Not Available Not Available Not Available gabapentin 300 mg capsule Take 1 capsule 3 times a day by oral route. 03/07 completed Not Available Not Available Not Available omeprazole 20 mg capsule,del ayed release TAKE 1 CAPSULE BY MOUTH EVERY DAY active Not Available Not Available No t Available cephalexin 500 mg tablet Take 1 tablet 3 times a day by oral route for 10 days. 2018 active Not Available Not Available Not Avai lable mupirocin 2 % topical ointment APPLY A SMALL AMOUNT TO THE AFFECTED AREA BY TOPICAL ROUTE 3 TIMES PER DAY 11/28 completed Not Available Not Available Not Available ibuprofen 600 mg tablet Take 1 tablet 3 times a day by oral route with meals. 2016 active Not Available Not Available Not Avai lable fluoxetine 20 mg capsule Take 1 capsule every day by oral route. 07/06 completed Not Available Not Available Not Available fluticasone propionate 50 mcg/actuati on nasal spray,suspe nsion INHALE 2 SPRAYS IN EACH NOSTRIL EVERY DAY NEEDED active Not Available Not Available No t Available doxycycline hyclate 100 mg tablet Take 1 tablet twice a day by oral route for 10 days. 03/02 completed Not Available Not Available Not Available Bactrim DS 800 mg-160 mg tablet Take 1 tablet every 12 hours by oral route as directed for 7 days. 06/06 completed Not Available Not Available Not Available Prilosec OTC 20 mg tablet,jessica yed release Take 1 tablet every day by oral route for 90 days. 07/06 completed Not Available Not Available Not Available Mucinex DM 30 mg-600 mg tablet,exte nded release 12 hr Take 1 tablet every 12 hours by oral route. 05/06 completed Not Available Not Available Not Available Narcan 4 mg/actuatio n nasal spray active Not Available Not Available Not Available Vitals Date Recorded Body height Body mass index (BMI) Body weight Heart rate Oxygen saturation Oxygen saturation in Arterial blood by Pulse oximetry Body temperature Systolic And Diastolic Provider Name and Address Organization Details Last Updated DateTime 9 174.63 cm 28.8 kg/m2 51465.4 3 g 85 /min 97 % 97 % 97.1 [degF] 118/72 mm[Hg] Karen Salcedo [facility] 9 13:44:18 Date Recorded Body height Body mass index (BMI) Body weight Heart rate Oxygen saturation Oxygen saturation in Arterial blood by Pulse oximetry Body temperature Systolic And Diastolic Provider Name and Address Organization Details Last Updated DateTime 9 174.63 cm 28.6 kg/m2 41190.5 4 g 82 /min 95 % 95 % 98 [degF] 148/88 mm[Hg] [facility] 9 08:58:49 Date Recorded Body height Body mass index (BMI) Body weight Heart rate Oxygen saturation Oxygen saturation in Arterial blood by Pulse oximetry Body temperature Systolic And Diastolic Provider Name and Address Organization Details Last Updated DateTime 9 174.63 cm 28.7 kg/m2 51748.3 3 g 80 /min 96 % 96 % 98.1 [degF] 128/84 mm[Hg] [facility] 9 10:37:47 Date Recorded Body height Body mass index (BMI) Body weight Body temperature Heart rate Oxygen saturation Oxygen saturation in Arterial blood by Pulse oximetry Systolic And Diastolic Provider Name and Address Organization Details Last Updated DateTime 9 174.63 cm 28.7 kg/m2 69851.3 3 g 97.5 [degF] 82 /min 96 % 96 % 114/79 mm[Hg] [facility] 9 09:18:50 Date Recorded Body height Body mass index (BMI) Body weight Heart rate Oxygen saturation Oxygen saturation in Arterial blood by Pulse oximetry Body temperature Systolic And Diastolic Provider Name and Address Organization Details Last Updated DateTime 9 174.63 cm 27.7 kg/m2 76398.8 8 g 67 /min 95 % 95 % 97.1 [degF] 148/80 mm[Hg] [facility] 9 10:06:12 Social History Question Answer Notes LastModified by Organizat ion Details LastModified Time Tobacco Smoking Status Current Every Day Smoker RAMOS Lafleur, [facility] 07/05/2014 10:11:22 Do You Have An Advance Directive? Yes HCP/ -Dorcas, Son-Lanre Information not available 07/05/2014 Is Blood Transfusion Acceptable In An Emergency? Yes Information not available 11/29/2015 What Is Your Level Of Caffeine Consumption? Moderate Coffee Information not available 07/05/2014 What Type Of Diet Are You Following? REGULAR Information not available 07/05/2014 Which Illicit Or Recreational Drugs Have You Used? None Information not available 07/05/2014 Live Alone Or With Others? With Others , Son And Son's Girlfriend Information not available 11/29/2015 Do You Take Precautions To Prevent Distracted Driving? Yes Information not available 11/29/2015 How Often Do You Need To Have Someone Help You When You Read Instructions, Pamphlets, Or Other Written Material From Your Doctor Or Pharmacy? Never Information not available 11/29/2015 Have You Served In The ? No Information not available 12/10/2016 What Was The Date Of Your Most Recent Tobacco Screening? 11/06/2018 Information not available 11/25/2018 How Many Children Do You Have? 2 Information not available 07/05/2014 Seat Belts Used Routinely Yes Information not available 07/05/2014 Are You Sexually Active? Yes Information not available 07/05/2014 Smoke Alarm In Home Yes Information not available 11/29/2015 At What Age Did You Start Smoking Tobacco? 20 Information not available 11/29/2015 Are You Passively Exposed To Smoke? No Information not available 12/10/2016 How Much Tobacco Do You Smoke? 1.5 PPD Information not available 11/29/2015 Do You Use Sunscreen Routinely? Yes Information not available 07/05/2014 Sex: Unknown Functional Status Question Answer Note LastModified by Organizat ion Details LastModified Time What is your level of alcohol consumption? Occasional Information not available 07/05/2014 Are you currently employed? No Information not available 11/29/2015 Are you able to care for yourself independently? Yes Information not available 11/29/2015 What is your occupation? unemployed Information not available 11/29/2015 What is your exercise level? Occasional Information not available 12/10/2016 Mental Status None recorded. Family History Relationship Description Onset Age of this Age Resolved Age Notes LastModified by Organization Details LastModified Time Sister Diabetes mellitus awychowski Not available 11/28 14:03:07 Mother Parkinson's disease awychowski Not available 11/28 14:03:07 Mother Hypertensive disorder awychowski Not available 11/28 14:03:07 Mother Hypercholest erolemia awychowski Not available 11/28 14:03:07 Mother Anemia awychowski Not available 11/29/2015 14:03:07 Notes:patient was adopted Medical History Condition Response Arthritis Y Reflux/GERD Y Immunizations Vaccine Type Date Status Note Provider Nam e and Address Organization Details Recorded Time pneumococcal polysaccharide PPV23 5 completed Not Available [facility] 05/21/2019 02:21:41 Tdap 4 completed Tuyetdejuan joshi [facility] 02/17/2020 11:55:48 Influenza, high-dose, trivalent, PF 4 completed Tuyet Peñaloza adi [facility] 02/17/2020 11:55:48 Influenza, split virus, quadrivalent, PF 0 completed Tuyet Peñaloza null, [facility] 02/17/2020 11:55:48 Influenza, split virus, quadrivalent, PF 6 completed Not Available [facility] 05/21/2019 02:22:08 Influenza, split virus, quadrivalent, PF 7 completed Not Available [facility] 05/21/2019 02:22:11 Past Encounters Encounter ID Performer Location Encounter Start Date Encounter Closed Date Diagnosis/Indication Diagnosis SNOMED-CT Code Diagnosis ICD10 Code Diagnosis IMO Codes Diagnosis Note [id number] Min Harrington MD Main Office [address] [place] [address] 07/05/2014 09:35:19 07/05/2014 11:07:23 Adult health examination [id number] Will update immunizati on status and screen based on risk factors. Prior PCP records to be requested including immunizati on history and colonoscop y reports. Regular dental and ophtho care advised as well as seatbelt and sunscreen use. Distracted driving discussed. Advance directives in place. Body mass index 25-29 - overweight [id number] Tobacco de pendence syndrome 75969039 Pt is currently pre contemplat ashlie, despite understand ing potential jail health consequenc es. Advised to call when ready to quit and if assistance is desired. Administra tion of pneumococcal vaccine [id number] Impetigo 96312373 Possible diagnosis. Pt advised to call if persistent /worse as derm consult would be next to rule our BCC/SCC. [id number] Min Harrington MD Main Office [address] [address] 11/29/2015 13:26:33 11/29/2015 14:25:17 Adult health examination 160595215 Z00.01 Immunizati on status utd will screen based on risk factors. Overdue for colonoscop y. Regular dental and ophtho care advised as well as seat belt and sunscreen use. Distracted driving discussed. Advance directives in place. Body mass index 25-29 - overweight 741645661 Z68.29 Tobacco de pendence syndrome 47076166 F17.290 Pt is currently pre contemplat ashlie, despite understand ing potential continuous churn buttermaker health consequenc es. Advised to call when ready to quit and if assistance is desired. Screening for malignant neoplasm of colon 964979998 Z12.11 Allergic rhinitis 762513 04 J30.9 [id number] Min Harrington MD Main Office [address] [address] 03/05/2016 12:49:24 03/05/2016 13:58:43 Neck pain 49507509 M54.2 Has appt with [facility] PT via Dr Rodrigues. Need to track down old records from PMR and ortho. Will try neuropathi c pain medication in the meantime. Hypercholesterolemia 136 24128 E78.2 Current 10 yr CV risk score is 18%. Pt advised to start statin but declines at this time. Will follow/killian ddress. [id number] Deanna Monge PA-C Main Office [address] [address] 03/07/2016 11:16:34 03/07/2016 12:23:21 Herniation of nucleus pulposus of cervical intervertebral disc 7936770097 12018 M50.20 Start Tramadol 50 mg TID . Continue Voltaren given by Dr. Rodrigues. Start PT as scheduled next week. F/u with PCP in April. [id number] Min Harrington MD Main Office [address] [place] [address] 04/04/2016 10:25:43 04/04/2016 11:40:02 Cervical radiculopathy 60082609 M54.12 Will continue current dosing and reassess after PT trial. Once dosing has stabilized will institute a narcotic contract. Disorder o f cervical spine 727770681 M53.82 Hypercholesterolemia 136 09764 E78.2 Current 10 yr CV risk score is 18%. Pt advised to start statin but declines at this time. Will follow. Tobacco de pendence syndrome 91619111 F17.290 Pt is currently pre contemplat ashlie, despite understand ing potential continuous churn buttermaker health consequenc es. Advised to call when ready to quit and if assistance is desired. Gastroesop hageal reflux disease 804675355 K21.9 Intermitte nt issue without warning signs. WIll try PRN H2B and monitor. Needs infl uenza immunization 410786758 Z23 [id number] MARBELLA Szymanski Main Office [address] [place] [address] 05/23/2016 13:40:05 05/23/2016 15:43:37 Perirectal abscess 69233832 K61.1 Warm epsom salt baths twice daily, hot compresses 4 times daily, continue tramadol/ ibuprofen as needed, bactrim, as prescribed x 7 days. If sx worsen or do not improve please call/ return. [id number] Min Harrington MD Main Office [address] [place] [address] 06/06/2016 09:43:23 06/06/2016 10:40:37 Cervical radiculopathy 56809023 M54.12 Stable/wel l controlled . Narcotic contract completed and reviewed. 90 day rx provided as per terms of agreement. Hypercholesterolemia 136 17894 E78.2 Current 10 yr CV risk score is 18%. Pt advised to consider statin to reduce risk, along with smoking cessation but declines at this time. Will follow. [id number] Min Harrington MD Main Office [address] [address] [place] [address] 09/01/2016 10:30:02 09/01/2016 11:38:54 Hypercholesterolemia 18452220 E78.2 Previous 10 yr CV risk score is 18%, based on last level. Labs done this AM, will readdress depending on results. Cervical radiculopathy 07651171 M54.12 Stable/wel l controlled . Using tramadol PRN and not more than prescribed . Gastroesop hageal reflux disease 901311814 K21.9 Requires PPI for symptom control. No warning signs/symp toms. Reports EGD on the past. Increased frequency of urination 946299853 R35.0 Will try OTC supplement . If persistent /worse will image and consider rx. [id number] Kiet Monge PA-C Main Office [address] [address] [place] [address] 10/01/2016 13:12:21 10/01/2016 15:42:32 Upper respiratory infection 17663640 J06.9 25 minute office visit with greater than 50% of the visit face-to-fa ce with the patient and/or family providing counseling and/or coordinati on of care. Cough 19509107 R05 check cxr to r/o pna (less likely) Impacted cerumen 5860101 6 H61.22 mild on L Seasonal a llergic rhinitis 831972804 J30.2 [id number] Min Harrington MD Main Office [address] [address] [place] [address] 12/10/2016 14:36:40 12/10/2016 15:41:44 Adult health examination 869970772 Z00.00 Immunizati on status utd will screen based on risk factors. Colon cancer screening utd. Regular dental and ophtho care advised as well as seat belt and sunscreen use. Distracted driving discussed. Advance directives in place. Body mass index 25-29 - overweight 670356922 Z68.29 Tobacco de pendence syndrome 26680293 F17.290 Pt is currently pre contemplat ashlie, despite understand ing potential jail health consequenc es. Advised to call when ready to quit and if assistance is desired. Hypercholesterolemia 136 18333 E78.2 Will reasess and discuss tx based on CVD risk score. Screening for malignant neoplasm of lung 194498082 Z12.2 Gastroesop hageal reflux disease 314509011 K21.9 Requires PPI for symptom control. No warning signs/symp toms. Reports EGD in the past. Impacted cerumen 7614585 6 H61.23 Call for eval if OTC tx does not help. [id number] Min Harrington MD Main Office [address] [place] [address] 04/01/2017 12:43:21 04/01/2017 14:13:56 Gastroesophageal reflux disease 037033996 K21.9 Requires PPI intermitte ntly for symptom control. No warning signs/symp toms. Reports EGD in the past. Disorder o f cervical spine 421305660 M53.82 Not currently using tramadol regularly. Will follow. Needs infl uenza immunization 332062563 Z23 Hypercholesterolemia 136 81441 E78.2 Will have labs done today. Titrate dose accordingl y. Major depr essive disorder 841586342 F32.1 Will see if SSRI helps. Pt advised on common/ser ious potential side effects and to call with any problems. Acute dermatitis 0646810 6 L30.9 Suspect eczema. INB/worse refer to derm. [id number] Min Harrington MD Main Office [address] [place] [address] 04/22/2017 09:03:56 04/22/2017 09:46:08 Influenza-like illness 21221408 B34.9 Based on symptoms, duration and risk factors will cover empiricall y for flu. D/c med if swab is negative. Supportive /symptomat ic tx advised. Cough 95902918 R05 Muscle pain 36350773 M79 .1 [id number] Min Harrington MD Main Office [address] [place] [address] 05/06/2017 10:23:44 05/06/2017 11:06:50 Pure hypercholesterolemia 639856412 E78.00 Tolerating rx well. Overdue for labs. Will go ash. Acute dermatitis 1195619 6 L30.9 Responding to moderate potency steroid. Will continue and call inb/worse. Major depr essive disorder 324774313 F32.1 Doing well on current dose. Will continue current regimen. Screening for malignant neoplasm of lung 039789140 Z12.2 [id number] Kae goel MD Main Office [address] [place] [address] [place] [address] 07/06/2018 11:29:04 07/06/2018 12:09:41 Cellulitis of finger of left hand 1317120606 5898521 L03.012 Start Abx as dir. Warm compress, hand elevation. F/u 3 d. [id number] Kae goel MD Main Office [address] [place] [address] [place] [address] 07/09/2018 14:16:28 07/09/2018 15:34:58 Cellulitis of finger of left hand 4807329475 1146900 L03.012 Doxycyclin e does not seem to be covering the infection well. Will switch to Keflex QID, warm compresses and elevation. If fever and redness progressio n, pt. was asked to go to the ER. Otherwise, f/u 3 days. Elevated blood-pressure reading without diagnosis of hypertension 792420515 R03.0 DEcreased caffeine and sodium, check BP daily. Retest in 3 days. [id number] Kae goel MD Main Office [address] [place] [address] [place] [address] 07/13/2018 13:35:43 07/13/2018 14:10:41 Elevated blood-pressure reading without diagnosis of hypertension 928484274 R03.0 continue monitoring at for elevation beyond 140/90. LOwer caffeine and sodium. F/u in October at [facility]. Cellulitis of finger of left hand 2310076952 4677670 L03.012 Continue Abx as directed. [id number] Sharad Bryan MD Main Office [address] [place] [address] [place] [address] 11/03/2018 08:44:58 11/03/2018 09:24:14 Cellulitis of right foot 6973822759 0282897 L03.115 Infected puncture wound of the R. big toe with ? of foreign body XRay ordered, labs and start oral Abx ASH. Foot elevation , warm compress or soak in the warm salt water.l F/u 2 days. Go the the ER if despite Abx , worseing of swelling and erythema and fever. Superficia l foreign body in toe 261731117 S90.451A [id number] Sharad Bryan MD Main Office [address] [address] 11/05/2018 10:28:02 11/05/2018 11:20:44 Cellulitis of right foot 5035943867 8390786 L03.115 Infected puncture wound of the R. big toe with resulted foot cellulitis . Slight improvemen t with switch to Keflex. Pt. will continue and return for recheck tomorrow. Continue foot elevation and warm water soaks. [id number] Kanu Avilez MD Main Office [address] [address] 11/06/2018 09:11:50 11/06/2018 09:57:58 Cellulitis and abscess of toe 222433192 L03.031 The fluctuance is new. He was instructed to go to urgent care for I&D. [id number] Min Harrington MD Main Office [address] [address] 03/02/2019 09:40:42 03/02/2019 10:54:39 Cellulitis of finger of right hand 3345923854 9127696 L03.011 ? infected cyst. Will keep dry, elevate, start antibiotic s today. Recheck 2 days, sooner if worsening or fever. Labs done and if high wbc or esr consider referral. Health Concerns Section Related Observation LastModified by Organization Detai ls LastModified Time None Recorded Concern Status LastModified by Organization Details LastModified Time None Recorded Advance Directives Directive Y: HCP/ -Dorcas, Son-Anastasiya gonzalez Payers Insurance Date Sequence Insurance Name Policy Number Policy Blount Covered Member ID Blount Member ID Guarantor Name 08/03/2015 1 AGUSTÍN [id number] Dorcas Zaldivar [id number] Dorcas Zaldivar 03/03/2019 1 [place]: [employer] Subhash Zaldivar [id number] Dorcas Zaldivar 03/02/2019 2 [place] [facility] Subhash Zaldivar [id number] Dorcas Zaldivar Notes Date Note Type Note Provider Name and Address Organization Details Recorded Time 07/13/2018 text/html ROS as noted in the [facility] 58 year old male for recheck on L> 3rd finger cellulitis and BP. Abx was changes to Keflex and pt. noticed improvement w/i 1-2 days. Less swelling, no erythema or pain. He also noticed BP went down . TOday has normal BP. Deanna Monge PA-C [facility] [address], [address] 07/13/2018 14:19:28 11/03/2018 text/html ROS as noted in the [facility] 58 year old male c/o swelling , redness i the R. foot. Pt. stepped on something while walking barefoot at night 2 weeks ago. Punctured R. big toe. Had some tenderness for few days w/o swelling or redness. PT. reports not cleaning wound well. Past 3-4 days developed increasing swelling , redness , pain and today the whole foot is swollen and redness is going up from the big toe dorsally. DEnies fever, chills. No drainage. ? foreign body in the toe. Pt. soaked last night for the first time. Up to date on Tdap. Deanna Monge PA-C [facility] [address] [address], [place], [address], [facility] 11/03/2018 09:32:03 11/05/2018 text/html ROS as noted in the [facility] 58 year old male for 2 day f/u on cellulitis of the R. foot due to infected puncture wound of the R. big toe over 2 weeks ago. Pt. was started on Doxycycline 100 mg BID , but called office yesterday due to lack of response and was switched to Keflex 500 mg QID. Pt. took 3 doses yesterday and one this am. PT. reports slight improvements in swelling , but toe is still very swollen and hurts to step on the whole foot. NO drainage. NO fever, chills. He has been elevating extremity as recommended and also doing warm water and salt soaks. Deanna Monge PA-C [address], [address], [facility] 11/05/2018 14:02:02 11/06/2018 text/html ROS as noted in the HPI Continuing with abx and using warm soaks and elevation. The area at the bottom of his toe is larger and today it is fluctuant. Swelling and pain appear unchanged. No fever/chills. Kanu Avilez MD [address] [address], [place], [address], [facility] 11/06/2018 10:16:13 03/02/2019 text/html Pt here for right ring finger infection. Started with a bubble on the back of the finger a few days ago. The finger got red and swollen so he tried to pop the bubble with a sterilzed needle and squeeze out any pus. He has been soaking it a lot but it is not getting any better Doris joshi, [facility] 03/03/2019 07:39:06
--- OUTSIDE RECORDS SUMMARY | 2025-03-16 12:53 | XMS_ITS | Encounter Summary ---
Author Organization [employer] Address [address] [facility] 7t [place] [address] Care Team Providers Care Medical Office Professional Instructor Name Role Phone Hanh Vidal MD Primary Care Provider [phone] Encounter Details Date Type Department Care Team (Latest Contact Info) Description 03/15/2025 Travel Social History Tobacco Use Types Packs/Day Years [...] AM EDT documented as of this encounter Plan of Treatment Upcoming Encounters Date Type Department Care Team (Late st Contact Info) Description 04/04/2025 11:30 AM EST Telemedicine [facility] MED & P[facility] [address] [place] [address] Joanne Hernandez PharmD [address] [place] [address] documented as of this encounter Visit Diagnoses Not on filedocumented in this encounter Additional Health Concerns Assessment Noted Time PHQ-9 Depression Total Score: 0 01/18/20 24 10:58 AM EDT documented as of this encounter Care Teams Medical Office Professional Instructor Relationship Specialty Start Date End Date Hanh Vidal MD [address] [place] [address] PCP - General Family Medicine 05/15/21 Maximo Cullen Inside Technical Sales Representative 10/28/22 Yair Lackey Hull Molder 01/30/23 documented as of this encounter
--- OUTSIDE RECORDS SUMMARY | 2025-03-16 12:53 | XMS_ITS | Encounter Summary ---
Author Organization [employer] Address [address] [facility] 7t [place] [address] Care Team Providers Care X Ray Service Technician Name Role Phone Hanh Vidal MD Primary Care Provider [phone] Encounter Details Date Type Department Care Team ([facility] st Contact Info) Description 11/02/2024 Orders Only [facility] [address] [place], [place] [id number] ProviderHelder MD Social History Tobacco Use Types Packs/Day Years Used Date Smoking Tobacco: Every Day Cigarettes Passive Smoke Exposure: Never Smokeless Tobacco: Never Alcohol Use Standard Drinks/Week Comments Never 0 (1 standard drink = 0.6 oz pur e alcohol) Depression Answer Date Recorded Patient Health Questionnaire-9 Score 0 01/18/2024 Patient Health Questionnaire-9 Score 0 01/18/2024 Last PHQ-9: Questionnaire Data Not on file 0 01/18/2024 Housing Stability Answer Date Recorded What is your housing situation today? I have celijames sanders 02/10/[address] you [...] t he electric, gas, oil or water [employer] threatened to shut off services in your home? No 02/10/2024 Depression Answer Date Recorded Patient Health Questionnaire-2 Score 0 01/18/2024 Internet Access Answer Date Recorded Internet Access [...] Info) Description 04/04/2025 11:30 AM EST Telemedicine [facility] MED & PED[facility] [address] [place] [address] Joanne Hernandez PharmD [address] [place] [address] documented as of this encounter Procedures Procedure Name Priority Date/Time Associated Diagnosis Comments XR FOOT 3+ VIEWS LEFT Routine 11/02/2024 1:46 PM EDT documented in this encounter Results * XR Foot 3+ Views Left (11/02/2024 1:46 PM EDT) Anatomical Region Laterality Modality Lower Extremities, Foot Left Radiogra phic Imaging us Historical Provider MD CERON XR PROCEDURES Final R esult documented in this encounter Visit Diagnoses Not on filedocumented in this encounter Additional Health Concerns Assessment Noted Time PHQ-9 Depression Total Score: 0 01/18/20 24 10:58 AM EDT documented as of this encounter Care Teams X Ray Service Technician Relationship Specialty Start Date End Date Hanh Vidal MD [address] [place] [address] PCP - General Family Medicine 05/15/21 Maximo Cullen Paleology Teacher 10/28/22 Yair Lackey Sales And Catering Coordinator 01/30/23 documented as of this encounter
--- OUTSIDE RECORDS SUMMARY | 2025-03-16 12:53 | XMS_ITS | Encounter Summary ---
Author Organization [employer] Address [address] [facility] 7t [place] [address] Care Team Providers Care Adjunct History Instructor Name Role Phone Hanh Vidal MD Primary Care Provider [phone] Encounter Details Date Type Department Care Team ([facility] st Contact Info) Description 09/05/2024 Orders Only [facility] [address] [place] [address] ProviderHelder MD Social History Tobacco Use Types [...] t he electric, gas, oil or water [employer] threatened to shut off services in your [...] Info) Description 04/04/2025 11:30 AM EST Telemedicine [facility] MED & PEDS [address] [place] [address] Joanne Hernandez PharmD [address] [place] [address] documented as of this encounter Procedures Procedure Name Priority Date/Time Associated Diagnosis Comments BASIC METABOLIC PANEL Routine 07/21/2024 2:01 PM EDT documented in this encounter Results * Basic Metabolic Panel (07/21/2024 2:01 PM EDT) Blood Venous blood specimen / Unknown us Historical Provider LAB BLOOD ORDERABLES Kenia l Result documented in this encounter Visit Diagnoses Not on filedocumented in this encounter Additional Health Concerns Assessment Noted Time PHQ-9 Depression Total Score: 0 01/18/20 24 10:58 AM EDT documented as of this encounter Care Teams Adjunct History Instructor Relationship Specialty Start Date End Date Hanh Vidal MD [address] [place] [address] PCP - General Family Medicine 05/15/21 Maximo Cullen Cotton Weigher Operator 10/28/22 Yair Lackey Field Education Director 01/30/23 documented as of this encounter
--- OUTSIDE RECORDS SUMMARY | 2025-03-16 12:53 | XMS_ITS | Encounter Summary ---
Author Organization [employer] Address [address] [place] [address] [address] [place] [address] Care Team Providers Care Campus Administrator Name Role Phone Hanh Vidal MD Primary Care Provider [phone] Reason for Visit * Reason Comments Med Refill Encounter Details Date Type Department Care Team ([facility] st Contact Info) Description 06/05/2023 Refill [facility] MED & PEDS [address] [place], [place] [id number] Hanh Vidal MD [address] [place] [address] Essential hypertension Social History Tobacco Use Types Packs/Day Years Used Date Smoking Tobacco: Every Day Cigarettes Passive Smoke Exposure: Never Smokeless Tobacco: Never Alcohol Use Standard Drinks/Week Comments Never 0 (1 standard drink = 0.6 oz pur e alcohol) Depression Answer Date Recorded Patient Health Questionnaire-9 Score 2 07/25/2022 Housing Stability Answer Date Recorded What is your housing situation today? I have celi sanders 02/25/[address] you li ve. Do you have problems with any of the following? None of the above 02/25/2023 Food Insecurity Answer Date Recorded Within the past 12 months, y ou worried that your food would run out before you got money to buy more: Never True 02/25/2023 Within the past 12 months,th e food you bought just didn't last and you didn't have enough money to get more: Never True Transportation Answer Date Recorded In the past 12 months, has l ack of transportation kept you from medical appts, meetings, work or from getting things needed for daily living? No 02/25/2023 Utilities Answer Date Recorded In the past 12 months, has t he electric, gas, oil or water company threatened to shut off services in your home? No 02/25/2023 Depression Answer Date Recorded Patient Health Questionnaire-2 [...] Info) Description 04/04/2025 11:30 AM EST Telemedicine [facility] MED [facility] PEDS [address] [place] [address] Joanne Hernandez PharmD [address] [place] [address] documented as of this encounter Visit Diagnoses Diagnosis Essential hypertension Unspecified essential hypertension documented in this encounter Additional Health Concerns Assessment Noted Time PHQ-9 Depression Total Score: 2 07/26/19 23 3:20 PM EDT documented as of this encounter Care Teams Campus Administrator Relationship Specialty Start Date End Date Hanh Vidal MD [address] [place] [address] PCP - General Family Medicine 05/15/21 Maximo Cullen Boiler Room Operator 10/28/22 Yair Lackey Jewelry Enameler 01/30/23 documented as of this encounter
--- OUTSIDE RECORDS SUMMARY | 2025-03-16 12:53 | XMS_ITS | Encounter Summary ---
Author Organization [email or web address] Address [address] [facility] [address] [place] [address] Care Team Providers Care Customer Program Manager Name Role Phone Hanh Vidal MD Primary Care Provider [phone] Encounter Details Date Type Department Care Team ([facility] st Contact Info) Description 01/20/2024 Orders Only [facility] [address] [place] [address] ProviderHelder MD Social History Tobacco Use Types [...] housing situation today? I have celijames sanders 02/25/[address] you [...] t he electric, gas, oil or water [employer] threatened to shut off services in your home? No 02/25/2023 Depression Answer Date Recorded Patient Health Questionnaire-2 Score 0 01/18/2024 Sex and Gender Information Value Date Recorded Sex Assigned at Male 03/03/2022 10:39 AM EDT Legal Sex Male 10:39 AM EDT Gender Identity Male 03/03/2022 10:39 AM EDT Sexual Orientation Straight 03/03/2022 10 :39 AM EDT documented as of this encounter Plan of Treatment Upcoming Encounters Date Type Department Care Team (Late st Contact Info) Description 04/04/2025 11:30 AM EST Telemedicine [facility] [address] [place] [address] Joanne Hernandez PharmD [address] [place] [address] documented as of this encounter Procedures Procedure Name Priority Date/Time Associated Diagnosis Comments TRANSESOPHAGEAL ECHO (ETHEL) Routine 06/26 10:23 AM EST documented in this encounter Results * Transesophageal echo (ETHEL) (06/26/2023 10:23 AM EST) us Historical Provider CV ECHO PROCEDURES Final Result documented in this encounter Visit Diagnoses Not on filedocumented in this encounter Additional Health Concerns Assessment Noted Time PHQ-9 Depression Total Score: 0 01/18/20 24 10:58 AM EDT documented as of this encounter Care Teams Customer Program Manager Relationship Specialty Start Date End Date Hanh Vidal MD [address] [place] [address] PCP - General Family Medicine 05/15/21 Maximo Cullen Property Management Assistant 10/28/22 Yair Lackey Visual Merchandising Assistant 01/30/23 documented as of this encounter
--- OUTSIDE RECORDS SUMMARY | 2025-03-16 12:53 | XMS_ITS | Encounter Summary ---
Author Organization [employer] Address [address] [place] [address] [address] [place] [address] Care Team Providers Care Book Reviewer Name Role Phone Hanh Vidal MD Primary Care Provider [phone] Reason for Visit * Reason Comments Med Refill Encounter Details Date Type Department Care Team ([facility] st Contact Info) Description 03/14/2025 Refill [facility] [address] [place], [place] [id number] Hanh Vidal MD [address] [place] [address] Hypertension, unspecified type Social History Tobacco Use Types Packs/Day Years [...] Info) Description 04/04/2025 11:30 AM EST Telemedicine [facility] [address] [place] [address] Joanne Hernandez, PharmD [address] [place] [address] documented as of this encounter Visit Diagnoses Diagnosis Hypertension, unspecified type documented in this encounter Additional Health Concerns Assessment Noted Time PHQ-9 Depression Total Score: 0 01/18/20 24 10:58 AM EDT documented as of this encounter Care Teams Book Reviewer Relationship Specialty Start Date End Date Hanh Vidal MD [address] [place] [address] PCP - General Family Medicine 05/15/21 Maximo Cullen Admissions Rn 10/28/22 Yair Lackey Business Rules Developer 01/30/23 documented as of this encounter
--- OUTSIDE RECORDS SUMMARY | 2025-03-16 12:53 | XMS_ITS | Clinical Summary ---
Author Organization [facility] Address [address] [place] [id number] Phone Care Team Providers Care Medical Attendant Name Role Phone Hanh Vidal MD Primary Care Provider [phone] Allergies Active Allergy Reactions Criticality Noted Date Comments Varenicline 07/20/2024 Medications folic acid (FOLVITE) 1 MG tablet Take 1 tablet by mouth 1 (one) time each day 1 Active labetalol (NORMODYNE) 200 MG tablet Take 2 tablets by mouth in the morning and 2 tablets in the evening. 1 Active rosuvastatin (CRESTOR) 40 MG tablet Take 40 mg by mouth in the morning. 3 Active thiamine (VITAMIN B-1) 100 MG tablet Take 1 tablet by mouth 1 (one) time each day 1 Active Garlic (GARLIQUE PO) Take 400 mg by mouth 1 (one) time each day Active amLODIPine (NORVASC) 10 MG tablet Take 10 mg by mouth 1 (one) time each day Active omeprazole OTC (PriLOSEC OTC) 20 MG EC tablet Take 20 mg by mouth 1 (one) time each day Do not crush, chew, or split. Active losartan-hydroCHL OROthiazide (HYZAAR) 50-12.5 MG per tabletIndications :Essential (primary) hypertension TAKE ONE TABLET DAILY 30 tablet 2 4 Active tamsulosin (FLOMAX) 0.4 MG 24 hr capsule Take 0.4 mg by mouth 1 (one) time each day Active varenicline (CHANTIX) 1 MG tablet Take 1 mg by mouth in the morning and 1 mg in the evening. Take with full glass of water.. Active ferrous gluconate (FERGON) 324 (38 Fe) MG tablet Take 324 mg by mouth 1 (one) time each day with breakfast Active mupirocin (BACTROBAN) 2 % ointment Apply 1 application. topically in the morning and 1 application. in the evening and 1 application. before bedtime. Active spironolactone (ALDACTONE) 50 MG tablet Take 1 tablet (50 mg total) by mouth 1 (one) time each day 30 tablet 5 5 Active Active Problems Problem Noted Date Diagnosed Date Renal artery stenosis 07/20/2024 Chronic kidney disease 10/28/2022 Body mass index 25-29 - overweight 10/28/2022 Hypertension 10/28/2022 Acute nontraumatic kidney injury 07/25/2022 Overview (10/27/2022): Last Assessment & Plan: Will send labs to check levels. Patient will follow up to schedule appointment for hand drawer in, referral previously placed. Elevated blood-pressure read ing without diagnosis of hypertension 07/13/2018 Resolved Problems Problem Noted Date Diagnosed Date Resolved Date Heart failure 10/27/2022 10/27/2022 Seborrheic keratosis 10/27/2022 023 Overview (10/27/2022): Last Assessment & Plan: Patient with seborrheic keratosis on chest. Will refer to dermatology for removal. Acute otitis externa of left ear 08/29/2022 10/27/2022 Overview (10/27/2022): Last Assessment & Plan: Patient with swelling in the external L ear upon examination. Will start on augmentin and Cortisporin. Excessive cerumen in ear canal 08/29/2022 10/27/2022 Overview (10/27/2022): Last Assessment & Plan: Patient with cerumen impaction on bilateral ears upon examination. Will send debrox drops. Alcohol intake above recomme nded sensible limits 06/18/2022 10/27/2022 Diverticular disease 06/18/2022 023 Screening for lung cancer 06/18/2022 Overview (10/27/2022): Last Assessment & Plan: Patient with hx of tobacco use with more then 20 PPD and current, previous LDCT done July 2021, needs repeat, ordered Tobacco use disorder 06/18/2022 023 Abdominal aortic aneurysm without rupture 02/13/2022 10/27/2022 Disorder of thoracic aorta 10/10/2021 0 10/27/2022 Overview (10/27/2022): Last Assessment & Plan: Reports was told in [facility] that he will be better served in [facility] for his cardiac issue, reports not feeling satisfied with followup there, referral placed to [facility], requested [place] to get card records and also colonoscopy records Dyspnea on exertion 10/10/2021 10/28/19 23 Essential hypertension 10/10/202110/27 Overview (10/27/2022): Last Assessment & Plan: Uncontrolled. Elevated reading at time of visit. At this point, will increase hydralazine from 10 mg to 25 mg and add metolazone 2.5 mg diuretic, that should not affect kidney function and follow up. History of repair of aneurys m of abdominal aorta 10/10/2021 10/27/2022 Hyperlipidemia 10/10/2021 10/27/2022 Swelling of lower limb 10/10/202110/27 Peripheral vascular disease 03/21/2021 10/27/2022 Overview (10/27/2022): Left and Right external iliac arteries, left mid peroneal arthery with complete stenosis seen on doppler on 03/14/21. Severe stenosis in right popliteal artery Moderate stenosis in left common femoral and left posterior tibial arteries Seeing vascular surgery Last Assessment & Plan: Will send for lower extremity ultrasound. Heroin dependence 12/13/2018 10/27/2022 Methicillin resistant Staphy lococcus aureus infection 11/10/2018 10/27/2022 Major depressive disorder 05/06/2017 Gastroesophageal reflux disease 04/04/2016 10/27/2022 Cervical radiculopathy 09/15/201510/27 Anal fissure 10/07/2010 10/27/2022 Diverticulitis of colon 10/07/201010/03 Overview (10/27/2022): Colonoscopy 2001. Intervertebral disc disorder 02/26/2007 10/27/2022 Obesity 11/27/2005 10/27/2022 Tobacco user 11/27/2005 10/27/2022 Allergic rhinitis 08/05/2005 10/27/2022 Immunizations Immunization Administration Dates Next Due Influenza Split High Dose Pr eservative Free IM 02/01/2014 Influenza, Quadrivalent, Pre servative Free 04/09/2021,02/14/2020,04/01/2017,04/04 Influenza, Unspecified 04/01/2017,04/04/2016 Pfizer SARS-COV-2 09/20/2020,08/28/2020 Pneumococcal Polysaccharide 07/05/2014 Shingrix 09/04/2022,06/26/2022 Td 08/26/2001 Td, Unspecified 08/26/2001 Tdap 12/02/2013,08/26/2001 Social History Tobacco Use Types Packs/Day Years Used Date Smoking Tobacco: Every Day Cigarettes Smokeless Tobacco: Never Tobacco Cessation:Ready to Q uit: Not Asked; Counseling Given: Not Answered Alcohol Use Standard Drinks/Week Comments Yes 0 (1 standard drink = 0.6 oz pur e alcohol) socially Sex and Gender Information Value Date Recorded Sex Assigned at Not on file Legal Sex Male 12:36 PM EDT Gender Identity Not on file Sexual Orientation Not on file Last Filed Vital Signs Vital Sign Reading Time Taken Comments Blood Pressure 140/80 07/20/2024 1:39 PM EDT Pulse 76 07/20/2024 1:17 PM EDT Temperature - - Respiratory Rate - - Oxygen Saturation 95% 04/15/2023 1:25 PM EST Inhaled Oxygen Concentration - - Weight 101 kg (222 lb) 07/20/2024 1:17 PM EDT Height - - Body Mass Index - - Plan of Treatment Health Maintenance Due Date Last Done Comments Colorectal Cancer Screening: Annual FOBT 2008 Colorectal Cancer Screening: Colonoscopy 2008 Colorectal Cancer Screening: Sigmoidoscopy 2008 Influenza Vaccine (#1) 2025 , 01/30/2023, 04/09/2021, Additional history exists Pneumococcal Vaccine: 50+ Years Completed 01/30/2023, 07/05/2014 Pneumococcal Vaccine: Peds (0 to 5 Years) and At-Risk Patients (6 to 49 Years) Discontinued 01/30/2023, 07/05/2014 Hepatitis B Vaccine Aged Out No longe r eligible based on patient's age to complete this topic Insurance Medicare Medicare Care Teams Medical Attendant Relationship Specialty Start Date End Date Hanh Vidal MD [address] [place] [id number] PCP - General Family Medicine 07/21/23
--- OUTSIDE RECORDS SUMMARY | 2025-03-16 12:53 | XMS_ITS | Clinical Summary ---
Author Organization [employer] Address [address] [place] [address] [address] [place] [address] Care Team Providers Care Mission Systems Engineer Name Role Phone Hanh Vidal MD Primary Care Provider [phone] Allergies Active Allergy Reactions Criticality Noted Date Comments Varenicline 07/20/2024 Medications Aspirin Low Dose 81 MG chewable tablet CHEW ONE TABLET BY MOUTH ONCE DAILY 90 tablet 1 12/31/19 23 Active ferrous gluconate (Fergon) 324 (37.5 Fe) MG tablet Take 1 tablet by mouth in the morning. 11/27/19 23 Active mupirocin (Bactroban) 2 % ointment APPLY TO AFFECTED AREA 3 TIMES A DAY FOR 7 DAYS 05/12/19 24 Active erythromycin (Romycin) 5 MG/GM ophthalmic ointment APPLY TO AFFECTED EYE(S) 3 TIMES PER DAY FOR 7 DAYS 04/18/20 23 Active Garlic 400 MG tablet delayed-release Take 400 mg by mouth Once per day. Active nicotine (Nicoderm CQ) 21 MG/24HR patchIndications: Nicotine use disorder Place 1 patch on the skin 1 (one) time each day at the same time. 42 patch 09/06/19 25 Active nicotine (Nicoderm CQ) 14 MG/24HR patchIndications: Nicotine use disorder Place 1 patch on the skin 1 (one) time each day at the same time for 14 days. 14 patch 09/06/19 25 Active nicotine (Nicoderm CQ) 7 MG/24HR patchIndications: Nicotine use disorder Place 1 patch on the skin 1 (one) time each day at the same time. 14 patch 09/06/19 25 Active thiamine (Vitamin B-1) 100 MG tablet TAKE ONE TABLET BY MOUTH EVERY DAY 90 tablet 1 09/28/19 25 Active omeprazole (PriLOSEC) [address] capsule TAKE ONE CAPSULE DAILY 90 capsule 1 10/16/19 25 Active buPROPion SR (Wellbutrin SR) 150 MG 12 hr tablet Take 1 tablet by mouth every morning for 3 days, then increase to 1 tablet twice daily 60 tablet 5 11/16/19 25 Active nicotine polacrilex (Commit) 2 MG lozenge Dissolve 1 lozenge (2 mg) in the mouth if needed for smoking cessation. Max 20 lozenges per day 144 lozenge 5 11/16/19 25 Active colchicine 0.6 MG tablet TAKE 2 TABS BY MOUTH ONCE, THEN 1 TAB 1 HOUR LATER 11/03/19 25 Active rosuvastatin (Crestor) 40 MG tabletIndications :Mixed hyperlipidemia TAKE ONE TABLET EVERY NIGHT AT BEDTIME 90 tablet 1 12/06/19 25 Active amLODIPine (Norvasc) 10 MG tablet TAKE ONE TABLET EVERY MORNING 90 tablet 1 01/13/20 25 Active folic acid (Folvite) 1 MG tabletIndications :Alcohol intake above recommended sensible limits TAKE ONE TABLET EVERY DAY 90 tablet 1 01/13/20 25 Active spironolactone (Aldactone) 25 MG tablet TAKE TWO TABLETS ONCE DAILY 180 tablet 2 01/31/20 25 Active tamsulosin (Flomax) 0.4 MG 24 hr capsule TAKE ONE CAPSULE DAILY 30 MINUTES FOLLOWING THE SAME MEAL EACH DAY 90 capsule 1 5 10:42 AM EST 03/15/20 25 Active labetalol (Normodyne) 200 MG tabletIndications :Hypertension, unspecified type TAKE ONE TABLET TWICE DAILY 180 tablet 1 5 10:42 AM EST 03/15/20 25 Active olmesartan-hydroC HLOROthiazide (Benicar HCT) 40-25 MG tablet Take 1 tablet by mouth Once per day. 90 tablet 1 03/15/20 25 Active labetalol (Normodyne) 200 MG tabletIndications :Hypertension, unspecified type TAKE ONE TABLET TWICE DAILY 180 tablet 1 09/09/19 25 2024 Discontinued tamsulosin (Flomax) 0.4 MG 24 hr capsule TAKE ONE CAPSULE DAILY 30 MINUTES FOLLOWING THE SAME MEAL EACH DAY 90 capsule 1 09/20/19 25 2024 Discontinued losartan-hydroCHL OROthiazide (Hyzaar) 100-25 MG tablet TAKE ONE TABLET EVERY DAY 90 tablet 1 02/09/20 25 2024 Discontinued(T herapy completed) Active Problems Problem Noted Date Diagnosed Date Gout 03/15/2025 Nicotine use disorder 09/05/2024 Assessment & Plan (09/05/2024 10:02 AM EDT): - Prescribe nicotine patch 21 mg/day for 6 weeks - Instructions: Apply patch in the morning, remove at least 4 hours before bedtime - Rotate application sites to avoid skin irritation - Refer to [employer] program for additional support and potential coverage of nicotine replacement therapy - Refer to pharmacy smoking cessation program - Consider adding Chantix (varenicline) in the future if nicotine replacement therapy alone is insufficient - Follow up in 3 months to assess progress with smoking cessation efforts Class 1 obesity with serious comorbidity and body mass index (BMI) of 32.0 to 32.9 in adult 09/05/2024 Assessment & Plan (09/05/2024 10:03 AM EDT): Discussed calorie deficit, recommended reduction of 20-30% of maintenance calories; vocational rehabilitation technician referral offered. Recommended to decrease soda and sugary beverage consumption. Recommended at least 20 g per meal of protein to assist with satiety. Recommended at least 150 min/week of moderate intensity exercise. Renal artery stenosis 07/20/2024 Hypertension 01/18/2024 Assessment & Plan (09/05/2024 10:00 AM EDT): Plan: - Continue current antihypertensive medications, including spironolactone 50 mg (recently increased from 25 mg) - Monitor blood pressure and kidney function - Consider renal artery stenting as recommended by instructional paraprofessional to improve renal blood flow and potentially improve blood pressure control - Follow up with nephrology for further evaluation and management of renal artery stenosis Assessment & Plan (02/19/2024 1:20 PM EDT): BP improved. At this moment will cont with incr losartan-hydrochlorothiazide. Target BP < 130/80 mmHg. Followup in 6-8 weeks. Assessment & Plan (01/20/2024 5:13 PM EDT): BP is elevated, not at goal. Restart Amlodipine 10 mg + Losartan HCTZ 50 mg, continue Labetalol 200 mg. Follow up one week with nurse. Nursing Visit Instructions: - If SBP < 140/DBP <90 mmHg in more than 75% of home self-monitoring, continue current medication regimen and make f/u with PCP in 3 month - If SBP >140-165/DBP >90-115 mmHg , add hydralazine 10 mg TID and f/u with PCP in 1 month - If SBP > 165/ DBP> 115 mmHg, consult with covering provider - If SBP <90/DBP <50 mmHg, consult with covering provider. Relevant Medications Amlodipine (Norvasc) 10 mg tablet Losartan-Hydrochlorothiazide (Hyzaar) 50-12.5 mg tablet Aneurysm of ascending aorta without rupture 01/202303/23/2023 Overview (03/15/2025): Dilated thoracic aorta measuring 4.9 cm should undergo follow-up imaging (TTE, CT, or MRI) in 6 to 12 months to determine the rate of aortic enlargement; if stable, surveillance imaging every 6 to 24 months is reasonable, with the interval tailored to aortic diameter and growth rate Last TTE was 01/2024 in [facility] Impetigo 01/30/2023 Immunization due 01/30/2023 Anemia 01/30/2023 Chronic kidney disease 10/28/2022 Heart failure 10/27/2022 Seborrheic keratosis 10/27/2022 Assessment & Plan (04/18/2024 11:42 AM EST): Visible Seborrheic Keratosis, pt will continue to monitor and follow up next visit. Assessment & Plan (10/27/2022 1:45 PM EDT): Patient with seborrheic keratosis on chest. Will refer to dermatology for removal. Peripheral vascular disease 10/27/2022 Assessment & Plan (10/27/2022 1:44 PM EDT): Will send for lower extremity ultrasound. Alcohol intake above recommended sensible limits 06/18/2022 Dilatation of thoracic aorta 06/18/2022 Assessment & Plan (06/18/2022 4:38 PM EST): Reports was told in [place] that he will be better served in [facility] for his cardiac issue, reports not feeling satisfied with followup there, referral placed to [facility], requested [place] to get card records and also colonoscopy records Hyperlipidemia 06/18/2022 Diverticular disease 06/18/2022 Tobacco dependence syndrome 06/18/2022 Allergic rhinitis 06/18/2022 Colon cancer screening 06/18/2022 Assessment & Plan (09/05/2024 10:02 AM EDT): 64-year-old male due for colon cancer screening. Patient expresses preference for having the procedure done at [facility]. Plan: - Refer for colonoscopy at [facility] Assessment & Plan (04/18/2024 11:42 AM EST): Referral to for Colonoscopy and further evaluation. Assessment & Plan (06/18/2022 4:37 PM EST): Patient with hx of tobacco use with more then 20 PPD and current, previous LDCT done July 2021, needs repeat, ordered Abdominal aortic aneurysm (AAA) without rupture 02/13/2022 03/23/2023 Overview (03/15/2025): Abdominal aortic aneurysm (AAA) treated with endovascular aneurysm repair (EVAR) (2019) F/up: Annual duplex ultrasound is reasonable, with additional cross-sectional imaging (CT or MRI of the abdomen and pelvis) every 5 years postoperatively Heroin dependence (CMS/HCC) 12/13/2018 Methicillin resistant Staphylococcus aureus infe ction 11/10/2018 Major depressive disorder 05/06/2017 Gastroesophageal reflux disease 04/04/2016 Cervical nerve root compression 09/15/2015 Overview (03/15/2025): multilevel degenrative changes, with severe left neuroforaminal narrowing left C6/C7 Resolved Problems Problem Noted Date Diagnosed Date Resolved Date Excessive cerumen in both ear canals 08/29/2022 01/30/2023 Assessment & Plan (08/29/2022 9:51 AM EDT): Patient with cerumen impaction on bilateral ears upon examination. Will send debrox drops. Acute otitis externa of left ear 08/29/2022 01/30/2023 Assessment & Plan (08/29/2022 9:51 AM EDT): Patient with swelling in the external L ear upon examination. Will start on augmentin and Cortisporin. Acute kidney injury 07/25/2022 09/06/19 Assessment & Plan (10/27/2022 1:43 PM EDT): Will send labs to check levels. Patient will follow up to schedule appointment for instructional paraprofessional, referral previously placed. Essential hypertension 06/18/202209/05 Assessment & Plan (03/26/2024 9:20 AM EST): BP is elevated, recheck 156/102. Begin low dose Spironolactone. Ordering lab work for further evaluation. Follow up in 3 weeks for BP recheck with at home readings. Relevant Medications Spironolactone (Aldactone) 25 mg tablet Assessment & Plan (04/24/2023 3:28 PM EST): Controlled: patient presented visit with a stable blood pressure readings. Patient will be provided with a medication refill. No further changes at this time. Assessment & Plan (04/06/2023 3:42 PM EST): Uncontrolled: patient presented visit with an elevated blood pressure with readings of 162/88 mmHg. Patient will have an increase of medications to control readings. Recommended to keep monitoring at home, and bring readings upon next office visit. Patient had blood pressure retaken at the time of visit with readings of 158/88 mmHg. -Labs: Magnesium, Basic Met. Panel. Follow up in 2 weeks to recheck readings. Assessment & Plan (03/24/2023 12:04 PM EST): Uncontrolled, restart by cards with amlodipine will increase to 10 mg. Recommended patient to keep monitoring blood pressure readings at home and bring readings upon next office visit. Will need to monitor electrolytes. Assessment & Plan (02/25/2023 3:37 PM EDT): Dose of hydralazine was increased. Target < 140/90 mmHg. Willc heck levels. Current on hydralazin, labetalol, isosorbid, his BRET-I, diuretics and amlodipine were removed due to side effects and nephro. Followup in 1 month Assessment & Plan (10/27/2022 1:42 PM EDT): Uncontrolled. Elevated reading at time of visit. At this point, will increase hydralazine from 10 mg to 25 mg and add metolazone 2.5 mg diuretic, that should not affect kidney function and follow up. Assessment & Plan (06/18/2022 4:36 PM EST): Reports has stopped being compliant with diet, compliant with meds most of they time, last visit BP was well controlled. Will hold off changes, encouraged lifestyle modifications and f/u in 6-8 weeks Encounters Date Type Department Care Team Description 03/15/2025 4:00 PM EST Office Visit [facility] [address] [place] [address] Hanh Vidal MD Infrarenal abdominal aortic aneurysm (AAA) without rupture (CMS/HCC) (Primary Dx); Resistant hypertension; Aneurysm of ascending aorta without rupture (CMS/HCC); Gout, unspecified cause, unspecified chronicity, unspecified site; Encounter for immunization; Encounter for vaccination; Colon cancer screening; Hard of hearing; Prostate cancer screening 03/15/2025 Travel 03/14/2025 Refill [facility] [address] [place] [address] Hanh Vidal MD Hypertension, unspecified type 03/08/2025 Travel 03/07/2025 Patient Outreach [facility] [address] [place] [address] Hanh Vidal MD Pre-visit Planning (Pre visit planning LVM ) 02/14/2025 Telephone [facility] [address] [place], [place] [phone] Hanh Vidal MD 02/07/[address] [facility] [address] [place] [address] Rommel Morrison MD 01/31/2025 11:30 AM EDT Telemedicine [facility] [address] [place] [address] Joanne Hernandez PharmD Nicotine use disorder (Primary Dx) 01/31/2025 Travel 01/28/[address] [facility] [address] [place] [address] Hanh Vidal MD 01/12/[address] [facility] [address] [place] [address] Caden Hamilton MD Alcohol intake above recommended sensible limits 12/27/2024 Telephone [facility] [address] [place] [address] Hanh Vidal MD chart prep 12/22/2024 Patient Outreach [facility] [address] [place] [address] Hanh Vidal MD Pre-visit Planning (SDOH screening completed on 08/29/24) 12/19/2024 1:00 PM EDT Telemedicine [facility] [address] [place] [address] Joanne Hernandez PharmD Nicotine use disorder (Primary Dx) from Last 3 Months Immunizations Immunization Administration Dates Next Due Hep A, Adult 02/19/2024 Influenza injectable quadriv alent preservative free 01/30/2023,04/09/2021,02/14/2020,04/01,04/04/2016 Influenza, High Dose Seasona l, Preservative Free 03/15/2025,02/01/2014 Influenza, IIV3, injectable 04/01/2017, 6 Influenza, Unspecified 04/01/2017,04/04/2016 Influenza, seasonal, injecta ble, preservative free 01/18/2024 Pfizer Covid-19 Vaccine 12+ 03/15/2025 Pneumococcal Conjugate PCV 20 01/30/2023 Pneumococcal Polysaccharide PPSV23 07/05/2014 TD (adult), 2 Lf tetanus tox oid, preservative free, adsorbed 08/26/2001 Td (adult) 08/26/2001 Td (adult), unspecified 08/26/2001 Tdap 01/18/2024,12/02/2013,08/26/2001 Zoster, Recombinant 09/04/2022,06/26/2022 Zoster, live 09/04/2022,06/26/2022 Social History Tobacco Use Types Packs/Day Years Used Date Smoking Tobacco: Every Day Cigarettes Passive Smoke Exposure: Never Smokeless Tobacco: Never Tobacco Cessation:Ready to Q uit: Not Asked; Counseling Given: Not Answered Alcohol Use Standard Drinks/Week Comments Never 0 [...] Orientation Straight 03/03/2022 10 :39 AM EDT Last Filed Vital Signs Vital Sign Reading [...] Mass Index 34.07 03/15/2025 3:51 PM EST Plan of Treatment Upcoming Encounters Date Type Department Care Team (Late st Contact Info) Description 04/04/2025 11:30 AM EST Telemedicine [facility] [address] [place] [address] Joanne Hernandez, PharmD [address] [place] [address] Health Maintenance Due Date Last Done Comments CT Colonography 1959 Colonoscopy 1959 Colorectal Cancer Screening 1959 FIT DNA/Cologuard 1959 FIT 1959 FOBT 1959 Sigmoidoscopy 1959 Alcohol/Substance Use Screening 1971 RSV Patients and Patients Aged 60 years or older (1 - Risk 50-74 years 1-dose series) 2009 SDOH Screening 08/29/2025 08/29/2024 COVID-19 Vaccine ( season) 2025 03/15/2025, 03/18/2022, 06/11/2021, Additional history exists Tobacco Screening 03/15/2026 03/15/2025 Depression Screening 03/16/2026 03/16/2025, 03/16/20 25 Lipid Panel 01/17/2029 01/18/2024, 06/04, 05/24/2021 DTaP/Tdap/Td Vaccines (5 - Td or Tdap) 01/17/2034 01/18/2024, 12/02/2013, 08/26/2001, Additional history exists Hepatitis C Screening Completed 06/20/2022, 022 Zoster Vaccines Completed 09/04/2022, 05/0 08/2022, 06/26/2022, Additional history exists Pneumococcal Vaccine: 50+ Years Completed 01/30/2023, 07/05/2014 Hepatitis A Vaccines Aged Out 02/19/2024 No long er eligible based on patient's age to complete this topic Influenza Vaccine Completed 03/15/2025, , 01/30/2023, Additional history exists HIB Vaccines Aged Out No longer eligi ble based on patient's age to complete this topic HPV Vaccines Aged Out No longer eligi ble based on patient's age to complete this topic Hepatitis B Vaccines Aged Out No long er eligible based on patient's age to complete this topic IPV Vaccines Aged Out No longer eligi ble based on patient's age to complete this topic Meningococcal B Vaccine Aged Out No l onger eligible based on patient's age to complete this topic Meningococcal Vaccine Aged Out No mariah kin eligible based on patient's age to complete this topic RSV under 20 months Aged Out No longe r eligible based on patient's age to complete this topic Rotavirus Vaccines Aged Out No longer eligible based on patient's age to complete this topic Procedures Procedure Name Priority Date/Time Associated Diagnosis Comments LIPID PANEL, STANDARD Routine 01/18/2024 11:43 AM EDT Hypertension, unspecified type HEPATITIS C AB W/REFL TO HCV RNA, QN, PCR Routine 06/20/2022 8:42 AM EST Class 1 obesity with body mass index (BMI) of 33.0 to 33.9 in adult, unspecified obesity type, unspecified whether serious comorbidity present from Last 3 Months or Most Recently Relevant to Health Maintenance Results * (ABNORMAL) Lipid Panel, Standard (01/18/2024 11:43 AM EDT) Triglycerides 207(H) <150 mg/dL [facility] Comment:Desirable Triglyceri de: less than 150 mg/dLBorderline High Triglyceride 150-199 mg/dLHigh Triglyceride: 200-499 mg/dLVery High Triglyceride: greater than or equal to 5OO mg/dL Cholesterol 173 <200 mg/dL [facility] Comment:Desirable Cholestero l: less than 200 mg/dLBorderline High Cholesterol: 200-239 mg/dLHigh Cholesterol: greater than 239 mg/dL LDL Cholesterol Calculated 88 <100 mg/dL [facility] Comment:Desirable LDL: less than 100 mg/dLNear Optimal/Above Optimal LDL: 110- 129 mg/dLBorderline High LDL: 130-159 mg/dLHigh LDL: 160-189 mg/dLVery High LDL: greater than or equal to 190 mg/dL HDL Cholesterol 44 >40 mg/dL [facility] Comment:Desirable HDL: great er than 40 mg/dL Note: This HDL assay may give artificially low results in patients with liver disease. Blood Venous blood specimen / Unknown 01/18/2024 11:43 AM EDT 01/18/2024 2:23 PM EDT us Hanh Vidal MD LAB BLOOD ORDERABLES Final Re sult [facility] [address] [place], [place] [phone] * Hepatitis C Antibody with Reflex to HCV, RNA, Quantitative, Real-Time PCR (06/20/2022 8:42 AM EST) Hepatitis C Antibody NON-REACT [place] NON-REACT [place] [facility] Index 0.06 <1.00 [facility] Comment: HCV antibody was non-reactive. There is no laboratory evidence of HCV infection. In most cases, no further action is required. However, if recent HCV exposure is suspected, a test for HCV RNA (test code 27525) is suggested. For additional information please refer to http://education.He[employer]/faq/JXY42i9 (This link is being provided for informational/ educational purposes only.) Blood Venous blood specimen / Unknown 06/20/2022 8:42 AM EST 06/20/2022 8:42 AM EST Narrative [facility] - 06/24/2022 4:07 PM EST FASTING:YES FASTING: YES us Hanh Vidal MD LAB BLOOD ORDERABLES Final Re sult [facility] [address] [facility] [place] [address] [facility] [address] [place] [phone] from Last 3 Months or Most Recently Relevant to Health Maintenance Insurance [employer] MEDICARE ADVANTAGE HMO Care Teams Mission Systems Engineer Relationship Specialty Start Date End Date Hanh Vidal MD [address] [place] [phone] PCP - General Family Medicine 05/15/21 Maximo Cullen Decorator Lighting Fixtures 10/28/22 Yair Lackey Hand Filer Balance Wheel 01/30/23
--- OUTSIDE RECORDS SUMMARY | 2025-03-16 12:53 | XMS_ITS | Clinical Summary ---
Author Organization [facility] Address [address] [place] [address] Phone Care Team Providers Care Flight Communications Specialist Name Role Phone Hanh Vidal MD Primary Care Provider [phone] Allergies No known active allergies Medications No known medications Active Problems No known active problems Surgical History Surgery Date Site/Laterality Comments OTHER SURGICAL HISTORY 2015 PROCEDURE: SPINAL FUSION, EA ADD'L INTERSPACE; COMMENT: neck OTHER SURGICAL HISTORY PROCEDURE: ENDOVASC REPR ABD AORTIC ANEUR; W/PROSTH TUBE Medical History Medical History Date Comments Allergic rhinitis, cause unspecified 08/05/2005 DX:Allergic rhinitis, cause unspecified Other and unspecified disc d isorder of lumbar region 02/26/2007 DX:Other and unspecified dis c disorder of lumbar region Diverticulosis of colon (wit hout mention of hemorrhage) 10/07/2010 DX:Diverticulosis of colon ( without mention of hemorrhage) VILLASENOR (dyspnea on exertion) DX:VILLASENOR (dyspnea on exertion) Ascending aortic aneurysm (C MS/HCC V24) DX:Ascending aortic aneurysm (HCC) HTN (hypertension) DX:HTN (hyper tension) Mixed hyperlipidemia DX:Mixed hy perlipidemia PVD (peripheral vascular dis ease) (CMS/HCC V24) DX:PVD (peripheral vascular disease) ([facility]) Social History Tobacco Use Types Packs/Day Years Used Date Smoking Tobacco: Every Day Cigarettes Smokeless Tobacco: Never Alcohol Use Standard Drinks/Week Comments Yes 0 (1 standard drink = 0.6 oz pur e alcohol) Sex and Gender Information Value Date Recorded Sex Assigned at Not on file Legal Sex Male 6:39 PM EST Gender Identity Not on file Sexual Orientation Not on file Obstetrics History Last Filed Vital Signs Vital Sign Reading Time Taken Comments Blood Pressure 139/84 11/02/2024 11:10 AM EDT Pulse 66 11/02/2024 11:10 AM EDT Temperature 37.3 C (99.1 F) 11/02/2024 11:10 AM EDT Respiratory Rate 20 11/02/2024 11:10 AM EDT Oxygen Saturation 95% 11/02/2024 11:10 AM EDT Inhaled Oxygen Concentration - - Weight 95.3 kg (210 lb) 11/02/2024 11:10 AM EDT Height 175.3 cm (5' 9 ) 11/02/2024 11:10 AM EDT Body Mass Index 31.01 11/02/2024 11:10 AM EDT Plan of Treatment Health Maintenance Due Date Last Done Comments Colorectal Cancer Screening: Colonoscopy 1959 RSV Immunization Adult Patients (1 - Risk 50-74 years 1-dose series) 2009 Lung Cancer Screening (Low Dose CT) 04/05/2022 Medicare Annual Wellness Visit 04/05/2022 Social Influencers of Health Screening 04/05/2022 Depression Screening 05/04/2024 Falls Risk Assessment 2024 Hepatitis A Vaccines (2 of 2 - Risk 2-dose series) 08/19/2024 02/19/2024 COVID-19 Vaccine (2024- season) 2025 03/18/2022, 06/11/2021, 09/20/2020, Additional history exists Influenza Vaccine (#1) 2025 , 01/30/2023, 04/09/2021, Additional history exists Hypertension/CHF/CAD Annual BMP Blood Test 11/02/2025 11/02/2024 Cholesterol Screening (Lipid Panel) 01/17/2029 01/18/2024 DTaP,Tdap,and Td Vaccines (5 - Td or Tdap) 01/17/2034 01/18/2024, 12/02/2013, 08/26/2001, Additional history exists Hepatitis C Screening Completed 06/20/2022 Zoster Vaccines Completed 09/04/2022, 06/26/2022 Pneumococcal Vaccine: 50+ Years Completed 01/30/2023, 07/05/2014 HIB Vaccines Aged Out No longer eligi [...] on patient's age to complete this topic MMR Vaccines Aged Out No longer eligi ble based on patient's age to complete this topic Meningococcal ACWY Vaccine Aged Out N o longer eligible based on patient's age to complete this topic Meningococcal B Vaccine Aged Out No l onger eligible based on patient's age to complete this topic RSV Immunization Patients Under 20 months Aged Out No longer eligible based on patient's age to complete this topic Varicella Vaccines Aged Out No longer eligible based on patient's age to complete this topic Procedures Procedure Name Priority Date/Time Associated Diagnosis Comments BASIC METABOLIC PANEL STAT 11/02/2024 12:34 PM EDT from Last 3 Months or Most Recently Relevant to Health Maintenance Results * (ABNORMAL) Basic Metabolic Panel (BMP) (11/02/2024 12:34 PM EDT) Sodium 136 133 - 145 mmol/L LAB CHEMISTRY METHOD 11/02/2024 1:25 PM [facility] Potassium 4.9 3.5 - 5.5 mmol/L LAB CHEMISTRY METHOD 11/02/2024 1:25 PM [facility] Chloride 106 96 - 110 mmol/L LAB CHEMISTRY METHOD 11/02/2024 1:25 PM [facility] CO2 28 21 - 32 mmol/L LAB CHEMISTRY METHOD 11/02/2024 1:25 PM [facility] Anion Gap 2(L) 3 - 11 LAB CHEMISTRY METHOD 11/02/2024 1:25 PM [facility] Glucose 94 70 - 100 mg/dL LAB CHEMISTRY METHOD 11/02/2024 1:25 PM [facility] BUN 21 5 - 25 mg/dL LAB CHEMISTRY METHOD 11/02/2024 1:25 PM [facility] Creatinine 1.84(H) 0.70 - 1.30 mg/dL LAB CHEMISTRY METHOD 11/02/2024 1:25 PM EDT [facility] eGFR 40(L) >=60 mL/min/1. 73m2 LAB CHEMISTRY METHOD 11/02/2024 1:25 PM EDT [facility] Comment:Calculation based on the Chronic Kidney Disease Epidemiology Collaboration (CKD-EPI) equation refit without adjustment for race. BUN/Creatinine Ratio 11.4 LAB CHEMISTRY METHOD 11/02/2024 1:25 PM EDT [facility] Calcium 9.3 8.5 - 10.5 mg/dL LAB CHEMISTRY METHOD 11/02/2024 1:25 PM EDT [facility] Blood Venous blood specimen / Unknown Venipuncture / Unknown 11/02/2024 12:34 PM EDT 11/02/2024 1:00 PM EDT Dmitri [place] LAB BLOOD ORDERABLES Final Result [facility] [address] [place] [address], from Last 3 Months or Most Recently Relevant to Health Maintenance Insurance [employer] MEDICARE Advance Directives Documents on File Type Date Recorded Patient Optometry Assistant Expl anation Health Care Decision (hx) 03/13/2023 AD CHIN DIRECTIVE Health Care Decision (hx) 03/13/2023 AD CHIN DIRECTIVE Health Care Decision (hx) 02/13/2021 AD CHIN DIRECTIVE Health Care Decision (hx) 02/13/2021 AD CHIN DIRECTIVE Health Care Decision (hx) 02/13/2021 AD CHIN DIRECTIVE Health Care Decision (hx) 02/13/2021 AD CHIN DIRECTIVE Health Care Decision (hx) 02/13/2021 AD CHIN DIRECTIVE Health Care Decision (hx) 02/13/2021 AD CHIN DIRECTIVE Health Care Decision (hx) 02/13/2021 AD CHIN DIRECTIVE Health Care Decision (hx) 02/13/2021 AD CHIN DIRECTIVE Health Care Decision (hx) 02/13/2021 AD CHIN DIRECTIVE Health Care Decision (hx) 02/13/2021 AD CHIN DIRECTIVE Health Care Decision (hx) 02/13/2021 AD CHIN DIRECTIVE Health Care Decision (hx) 02/13/2021 AD CHIN DIRECTIVE Health Care Decision (hx) 02/13/2021 AD CHIN DIRECTIVE Health Care Decision (hx) 02/13/2021 AD CHIN DIRECTIVE Health Care Decision (hx) 02/13/2021 AD CHIN DIRECTIVE Health Care Decision (hx) 02/13/2021 AD [facility]NI DIRECTIVE Health Care Decision (hx) 02/13/2021 AD CHIN DIRECTIVE Health Care Decision (hx) 02/13/2021 AD CHIN DIRECTIVE Health Care Decision (hx) 02/13/2021 AD CHIN DIRECTIVE Health Care Decision (hx) 02/13/2021 AD CHIN DIRECTIVE Health Care Decision (hx) 02/13/2021 AD CHIN DIRECTIVE Health Care Decision (hx) 02/13/2021 AD CHIN DIRECTIVE Health Care Decision (hx) 02/13/2021 AD CHIN DIRECTIVE Health Care Decision (hx) 02/13/2021 AD CHIN DIRECTIVE Health Care Decision (hx) 02/13/2021 AD CHIN DIRECTIVE Health Care Decision (hx) 02/13/2021 AD CHIN DIRECTIVE Health Care Decision (hx) 02/13/2021 AD CHIN DIRECTIVE Care Teams Flight Communications Specialist Relationship Specialty Start Date End Date Hanh Vidal MD [address] [place] [address] PCP - General 05/22/21
[2025-03-16 14:04] LABS: MANUAL DIFF FLAG NO
[2025-03-16 14:34] LABS: Hematocrit 37.5 % (42.0-52.0); Hemoglobin 12.4 g/dl (14.0-18.0); Imm Gran Abs Auto 0.03 X10*3/uL (0.00-0.03); Imm Gran Pct Auto 0.3 % (0.0-0.4); Lymphocytes Absolute Auto 1.6 X10*3/uL (1.2-4.9); Mean Corpuscular HGB Conc 33.1 g/dl (31.0-36.0); Mean Corpuscular Hemoglobin 31.6 pg (27.0-33.0); Mean Corpuscular Volume 95.7 fL (80.0-98.0); NRBC Abs Auto 0.000 X10*3/uL (0.0-0.012); NRBC Pct Auto 0.0 /100WBC (0.0-0.2); Platelet Count 243 X10*3/uL (160-400); Red Blood Count 3.92 X10*6/uL (4.60-5.80); White Blood Count 9.4 X10*3/uL (4.8-10.8)
[2025-03-16 15:08] LABS: Alanine Aminotransferase 10 U/L (0-40); Albumin Level 4.6 g/dL (3.5-5.0); Alkaline Phosphatase 74 U/L (39-117); Anion Gap 13 (12-20); Aspartate Amino Transferase 20 U/L (5-37); Blood Urea Nitrogen 24 mg/dL (9-16); Calcium 9.2 mg/dL (8.4-10.2); Carbon Dioxide 26 mmol/L (22-29); Chloride 105 mmol/L (96-108); Cholesterol 161 mg/dL (<200); Estimated Glomerular Filt Rate 39; HDL Cholesterol 36 mg/dL (>40); Potassium 4.7 mmol/L (3.3-5.1); Sodium 139 mmol/L (135-145); Total Protein 7.3 g/dL (6.5-8.0); Triglycerides 182 mg/dL (<150); Uric Acid 9.2 mg/dL (3.4-7.0)
[2025-03-16 15:57] LABS: PSA,Total (Free>4and<10) 3.93 ng/mL (0.00-4.00)
== END 2025-03-16 10:32 | disposition home or self-care (01) ==
LOC: HO.CHCLDS 10:31
PROVIDERS: Visit Provider Family Medicine
DX: Z12.5 Encounter for screening for malignant neoplasm of prostate (principal); I1A.0 Resistant hypertension; M10.9 Gout, unspecified
CPT/HCPCS: 36415; 80053; 80061; 84153; 84443; 84550; 85025